=== PATIENT | female | born 1965 | race Caucasian/White ===

== ENCOUNTER 2020-03-30 16:11 | Outpatient (CLI) | payer OTHER, SELFPAY ==
--- NOTE | 2020-03-30 | ECG_ITS ---
Measurements Intervals [place] Rate: 62 P: 34 UT: 171 QRS: 16 QRSD: 113 T: 30 QT: 401 QTc: 407 Interpretive Statements SINUS RHYTHM INTRAVENTRICULAR CONDUCTION DELAY BORDERLINE ECG Electronically Signed On 03-30-2020 18:27:17 LEGUILLON DEBEADER by Catrachito Babin D.O.
[2020-03-30 17:13] LABS: Anion Gap 15 mmol/L (8-16); Blood Urea Nitrogen 22 mg/dL (7-17); Carbon Dioxide 27 mmol/L (22-30); Chloride 97 mmol/L (98-107); Estimated Glomerular Filt Rate 46; Glucose 121 mg/dL (65-105); Sodium 139 mmol/L (137-145)
== END 2020-03-30 16:12 | disposition home or self-care (01) ==
LOC: ANHLAB 16:15
PROVIDERS: Visit Provider Orthopaedic Surgery
DX: Z01.818 Encounter for other preprocedural examination (principal); I45.9 Conduction disorder, unspecified
CPT/HCPCS: 36415; 80048; 93005

== ENCOUNTER 2021-04-06 07:39 | Outpatient (CLI) | payer OTHER, SELFPAY ==
--- NOTE | 2021-04-14 14:52 | WPDHOMESLEEP ---
Sleep Study - Home Unattended Date of Study: 04/06/21 Ordering Provider: Marya Lau DO Interpreting Provider: Chandrika Bentley MD Home Sleep Study Type: Apnea Link Air Height: 1.75 m Weight: 129.274 kg Body Mass Index: 42.0 Neck Circumference (inches): 17 [place]: 10 Reason for Sleep Study Fatigue, waking up during the night, excessive daytime sleepiness Sleep History Marya Howell is a 56 year old female with complaints of feeling tired every day at least for the last year. She had a recent diagnosis of hypothyroidism and has started medication however that has not helped her symptoms. She wakes to go to the bathroom between 2 and 6 times per night. She has a difficult time waking in the morning and she is sleepy throughout the day. She occasionally awakens from sleep feeling short of breath. She does not awaken at night with heartburn belching or coughing. She constantly snores loudly and she constantly has trouble sleeping with a cold. She does not wake up gasping for breath at night. She does not have breathing problems at night observed by others. She denies sweating excessively at night or noticing her heart pounding or beating irregularly at night. She does not fall asleep during the day, does not fall asleep involuntarily or while driving. She does not have loss of muscle tone with strong emotion. She occasionally has daytime difficulties due to excessive sleepiness. 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 She does not feel paralyzed on waking or falling asleep. She constantly has vivid dreamlike scenes upon awakening or falling asleep. She does not feel afraid to go to sleep. She does not have nightmares. She occasionally remembers her dreams. She constantly has racing thoughts. She occasionally feels sad or depressed. She occasionally has anxiety. She occasionally feels muscular tension, occasionally notices parts of her body jerking and she occasionally kicks at night. She occasionally has crawling and aching feelings in her legs. She rarely has any kind of leg pain at night and rarely has morning jaw pain. She does not grind her teeth during sleep, she is not bothered by pain during the day and she is not awakened by pain during the night. She constantly wakes up feeling stiff in the morning. She does not wake up with sore achy muscles. She rarely wakes up with pain in the neck and spine. She has headaches, palpitations, fatigue depression and memory problems. Normal bedtime is 11:00 p.m. taking 1-2 hours to fall asleep, typically waking 2-6 times at night to urinate. While awake, she may get a bite to eat and drink some milk. SHe is able to return to sleep in 5 minutes. She wakes the morning at 5:45 a.m.. On days off, she will often sleep until noon. She feels as though she could take a nap in the day however she does not do so. A short nap is not refreshing. She is usually drowsy in the morning for 3 hours or longer. She feels better in the afternoon compared to other times of day. she always has problems with memory concentration. She occasionally has morning headaches. Habits: Never smoked tobacco. Caffeine 3-4 servings a day. No alcohol or recreational drugs. [facility] Past Medical History Medical History (Updated 04/14/21 @ 15:01 by Chandrika Bentley MD) Arthritis Bipolar disorder Cataract Chicken pox Depression GERD (gastroesophageal reflux disease) History of one miscarriage HTN (hypertension) Kidney disease CKD stage III Pneumonia Thyroid disorder Surgical History Surgical History History of bilateral tubal ligation Hx of section LAP-BAND surgery status Family History Family History Mother Patient's mother is in good health Sibling Patient's sister is in good health Patient's brother is in good health Father CHF (congestive heart failure) Roberto
[2021-04-14 15:11] VITALS: BMI 42.0
== END 2021-04-07 11:13 | disposition home or self-care (01) ==
LOC: ANHCSM 07:39
PROVIDERS: PCP Family Medicine; Visit Provider Family Medicine
DX: G47.10 Hypersomnia, unspecified (principal); R06.83 Snoring
CPT/HCPCS: 95806

== ENCOUNTER → 2021-04-28 01:18 | Outpatient (CLI) | payer OTHER, SELFPAY ==
[2021-04-28 13:16] LABS: SARS-CoV-2 RNA PCR Negative
== END ==
PROVIDERS: PCP Family Medicine; Visit Provider Family Medicine
DX: Z20.822 Contact with and (suspected) exposure to COVID-19 (principal)
CPT/HCPCS: C9803; U0003; U0005

== ENCOUNTER 2021-04-30 08:10 | Outpatient (CLI) | payer OTHER, SELFPAY ==
--- NOTE | 2021-05-16 22:10 | WPDSLEEPSTUD ---
Sleep Study Date of Study: 04/30/21 <Marya Lau DO - Last Filed: 05/17/21 16:55> Ordering Provider: Marya Lau DO <Marya Lau DO - Last Filed: 05/17/21 16:55> Interpreting Physician: Marya Lau DO <Marya Lau DO - Last Filed: 05/17/21 16:55> Sleep Study Type: Split Polysomnogram <Marya Lau DO - Last Filed: 05/17/21 16:55> Height: 1.75 m <Marya Lau DO - Last Filed: 05/17/21 16:55> Weight: 90.718 kg <Marya Lau DO - Last Filed: 05/17/21 16:55> Body Mass Index: 29.5 <Marya Lau DO - Last Filed: 05/17/21 16:55> Neck Circumference (inches): 17 <Marya Lau DO - Last Filed: 05/17/21 16:55> [place]: 10 <Marya Lau - Last Filed: 05/17/21 16:55> Reason for Sleep Study The patient had an HSAT on 04/06/2021 that showed an AHI of 3.7. She desaturated down to 83% with frequent snoring. It was recommended she have an in-lab study. <Marya Lau DO - Last Filed: 05/17/21 16:55> Sleep History Marya Howell is a 56 year old female with complaints of feeling tired every day at least for the last year. She had a recent diagnosis of hypothyroidism and has started medication however that has not helped her symptoms. She wakes to go to the bathroom between 2 and 6 times per night. She has a difficult time waking in the morning and she is sleepy throughout the day. She occasionally awakens from sleep feeling short of breath. She does not awaken at night with heartburn belching or coughing. She constantly snores loudly and she constantly has trouble sleeping with a cold. She does not wake up gasping for breath at night. She does not have breathing problems at night observed by others. She denies sweating excessively at night or noticing her heart pounding or beating irregularly at night. She does not fall asleep during the day, does not fall asleep involuntarily or while driving. She does not have loss of muscle tone with strong emotion. She occasionally has daytime difficulties due to excessive sleepiness. 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 She does not feel paralyzed on waking or falling asleep. She constantly has vivid dreamlike scenes upon awakening or falling asleep. She does not feel afraid to go to sleep. She does not have nightmares. She occasionally remembers her dreams. She constantly has racing thoughts. She occasionally feels sad or depressed. She occasionally has anxiety. She occasionally feels muscular tension, occasionally notices parts of her body jerking and she occasionally kicks at night. She occasionally has crawling and aching feelings in her legs. She rarely has any kind of leg pain at night and rarely has morning jaw pain. She does not grind her teeth during sleep, she is not bothered by pain during the day and she is not awakened by pain during the night. She constantly wakes up feeling stiff in the morning. She does not wake up with sore achy muscles. She rarely wakes up with pain in the neck and spine. She has headaches, palpitations, fatigue depression and memory problems. Normal bedtime is 11:00 p.m. taking 1-2 hours to fall asleep, typically waking 2-6 times at night to urinate. While awake, she may get a bite to eat and drink some milk. She is able to return to sleep in 5 minutes. She wakes the morning at 5:45 a.m.. On days off, she will often sleep until noon. She feels as though she could take a nap in the day however she does not do so. A short nap is not refreshing. She is usually drowsy in the morning for 3 hours or longer. She feels better in the afternoon compared to other times of day. she always has problems with memory concentration. She occasionally has morning headaches. Habits: Never smoked tobacco. Caffeine 3-4 servings a day. No alcohol or recreational drugs. <Marya Lau, DO - Last Filed: 05/17/21
[2021-05-17 16:55] VITALS: BMI 29.5
== END 2021-05-01 06:56 | disposition home or self-care (01) ==
LOC: ANHCSM 08:14
PROVIDERS: PCP Family Medicine; Visit Provider Family Medicine
DX: G47.10 Hypersomnia, unspecified (principal); G47.33 Obstructive sleep apnea (adult) (pediatric); G25.9 Extrapyramidal and movement disorder, unspecified
CPT/HCPCS: 95811

== ENCOUNTER 2022-04-22 12:46 | Outpatient (CLI) | payer SELFPAY ==
--- NOTE | ~2022-04-22 | US_ITS ---
EXAMINATION: US venous doppler LE RT DATE: 04/22/2022 13:48 INDICATION: Other specified soft tissue disorders TECHNIQUE: Matthews scale images without and with compression and Doppler images of the right lower extre mity veins were obtained. COMPARISON: None FINDINGS: The right common femoral vein, profunda femoral vein, femoral vein, popliteal vein, peronea l trunk, posterior tibial veins, and greater saphenous vein are patent. There is an approximately 10. 1 x 1.3 cm intramuscular fluid collection in the medial calf in the area of clinical concern. IMPRESSION: 1. Patent right lower extremity veins. No evidence of deep venous thrombosis. 2. Intramuscular fluid collection in the medial right calf in the area of clinical concern which coul d reflect prior trauma or less likely infection. Reviewed, dictated and finalized at location B. L FITTER IMPRESSION: 1. Patent right lower extremity veins. No evidence of deep venous thrombosis. 2. Intramuscular fluid collection in the medial right calf in the area of clini ruben concern which could reflect prior trauma or less likely infection.
== END 2022-04-22 12:47 | disposition home or self-care (01) ==
PROVIDERS: PCP Family Medicine; Visit Provider Clinical Nurse Specialist
DX: M79.89 Other specified soft tissue disorders (principal)
CPT/HCPCS: 93971

== ENCOUNTER 2022-06-10 00:34 | Day surgery (SDC) | payer OTHER, SELFPAY ==
[2022-05-25 11:27] VITALS: BMI 42.0
--- NOTE | 2022-06-09 15:41 | PM.HPGS ---
History of Present Illness History of Present Illness Consent: Risks, benefits, and alternatives have been discussed and questions answered. Patient agrees to proceed with procedure. Chief complaint: family hx colon ca, neoplasm screening Narrative: Marya Howell is a 57 year old female Who was referred for colon cancer screening. She has family history of colon cancer, her maternal grandfather. Review of Systems Review of Systems: All systems reviewed & are unremarkable except as noted in HPI and below PMFSH Past Medical History Medical History Arthritis Bipolar disorder Cataract Chicken pox Depression GERD (gastroesophageal reflux disease) History of one miscarriage History of torn meniscus of left knee surgical repair 04/08/2021 HTN (hypertension) Kidney disease CKD stage III Pneumonia Thyroid disorder Surgical History Surgical History History of bilateral tubal ligation Hx of section LAP-BAND surgery status Family History Family History Mother Patient's mother is in good health Sibling Patient's sister is in good health Patient's brother is in good health Father CHF (congestive heart failure) Alcoholism Hypertension Depression Heart disease Grandparent Cancer Diabetes mellitus Social History Social History Smoking status: Never smoker Alcohol intake: never Substance use: never Substance use type: does not use Lack of Transportation: No Lack of Food: Never True Current Housing: I Have Housing Concerned About Future Housing: No Difficulty Paying Gas/Electric Bills: No Difficulty Paying for Meds: No Currently Unemployed: No Education: Bachelor's Degree Difficulty w/ Childcare or Family Care: No Living arrangements: with family Spiritual care concerns: No Meds Home Medications and Allergies Home Medications Medication Instructions Recorded Confirmed Type lamotrigine 200 mg tablet 200 mg PO DAILY 04/01/19 05/25/22 History lithium carbonate 300 mg capsule 300 mg PO DAILY 04/01/19 05/25/22 History lurasidone 60 mg tablet (Latuda) 60 mg PO DAILY 04/01/19 05/25/22 History hydrochlorothiazide 12.5 mg tablet 12.5 mg PO DAILY 02/18/21 05/25/22 History levothyroxine 13 mcg capsule 13 mcg PO DAILY 02/18/21 05/25/22 History metoprolol succinate 25 mg 25 mg PO DAILY #90 tabs 03/14/22 05/25/22 Rx tablet,extended release 24 hr quetiapine 100 mg tablet 50 mg PO QHS 04/22/22 05/25/22 History amlodipine 2.5 mg tablet See Rx Instructions .Route 05/11/22 05/25/22 Rx .COMPLEX #90 tabs CPAP Equipment #1 ea 06/08/22 Rx Allergies Allergy/AdvReac Type Severity Reaction Status Date / Time No Known Allergies Allergy Verified 06/10/22 07:29 Exam Const: General: alert Orientation/consciousness: patient oriented x3 Resp: Auscultation: clear to auscultation bilaterally Cardio: Rhythm: regular rhythm GI: GI Palp: Yes Soft to palpation and No Tenderness to palpation present (GI) Neuro: General: patient oriented x3 Assessment and Plan Assessment and plan (1) Colon cancer screening: Code(s): Z12.11 - Encounter for screening for malignant neoplasm of colon Status: Acute Assessment and Plan: Colonoscopy with possible biopsy or polypectomy or cautery or injection of substances.
[2022-06-10 07:30] VITALS: BP 149/73; PULSE 58; RESP 18; TEMP 36.1; O2SAT 98
[2022-06-10] MEDS: LACTATED RINGERS 1,000 ML 150 ML IV CONT (07:37)
--- NOTE | 2022-06-10 08:04 | WPDANESEPPF ---
Anes - Initial Pre Proc Eval Procedure: Operation Date: 06/10/22 08:30 Proposed Procedures p Screening Colonoscopy - Devonte Pitt MD Date/Time: 06/10/22 08:04 Surgeon: Devonte Pitt MD Pre Op Diagnosis: family hx colon ca, neoplasm screening Patient Data Age: 57 Gender: F Height: 1.78 m Weight: 126.1 kg Last Vital Signs Temp 97 F L 06/10/22 07:30 Pulse 58 L 06/10/22 07:30 Resp 18 06/10/22 07:30 BP 149/73 H 06/10/22 07:30 Pulse Ox 98 06/10/22 07:30 O2 Del Method Room Air 06/10/22 07:30 Allergies Allergy/AdvReac Type Severity Reaction Status Date / Time No Known Allergies Allergy Verified 06/10/22 07:29 Home Medications Medication Instructions Recorded Confirmed Type lamotrigine 200 mg tablet 200 mg PO DAILY 04/01/19 05/25/22 History lithium carbonate 300 mg capsule 300 mg PO DAILY 04/01/19 05/25/22 History lurasidone 60 mg tablet (Latuda) 60 mg PO DAILY 04/01/19 05/25/22 History hydrochlorothiazide 12.5 mg tablet 12.5 mg PO DAILY 02/18/21 05/25/22 History levothyroxine 13 mcg capsule 13 mcg PO DAILY 02/18/21 05/25/22 History metoprolol succinate 25 mg 25 mg PO DAILY #90 tabs 03/14/22 05/25/22 Rx tablet,extended release 24 hr quetiapine 100 mg tablet 50 mg PO QHS 04/22/22 05/25/22 History amlodipine 2.5 mg tablet See Rx Instructions .Route 05/11/22 05/25/22 Rx .COMPLEX #90 tabs CPAP Equipment #1 ea 06/08/22 Rx Patient hx anesthesia problems: none Family hx anesthesia problems: none Results Review: All pre-operative results and documents have been reviewed as part of the pre-operative evaluation. [facility] [place] Past Medical History Medical History Arthritis Bipolar disorder Cataract Chicken pox Depression GERD (gastroesophageal reflux disease) History of one miscarriage History of torn meniscus of left knee surgical repair 04/08/2021 HTN (hypertension) Kidney disease CKD stage III Pneumonia Thyroid disorder Surgical History Surgical History History of bilateral tubal ligation Hx of section LAP-BAND surgery status Family History Family History Mother Patient's mother is in good health Sibling Patient's sister is in good health Patient's brother is in good health Father CHF (congestive heart failure) Alcoholism Hypertension Depression Heart disease Grandparent Cancer Diabetes mellitus Social History Social History Smoking status: Never smoker Alcohol intake: never Substance use: never Substance use type: does not use Lack of Transportation: No Lack of Food: Never True Current Housing: I Have Housing Concerned About Future Housing: No Difficulty Paying Gas/Electric Bills: No Difficulty Paying for Meds: No Currently Unemployed: No Education: Bachelor's Degree Difficulty w/ Childcare or Family Care: No Living arrangements: with family Spiritual care concerns: No Anes - Eval Final PreProcedure Day of Procedure 06/10/22 08:04 Patient weight: morbidly obese Heart: regular rate and rhythm Lungs: clear to auscultation Airway: Mallampati scale class III Neurological: alert and oriented Last oral intake: >/= 8 hours ASA classification: III Emergent: no Anesthetic plan: proceed Anesthesia type and monitoring: general GIVS and standard monitoring Results Review: All pre-operative results and documents have been reviewed as part of the pre-operative evaluation. Informed Consent: The patient's anesthetic plan and its attendant risks and benefits were discussed with the patient/family/POA. Questions were solicited and answers provided to the satisfaction of the patient/family/POA.
[2022-06-10 08:51] VITALS: BP 123/72; PULSE 66; RESP 22; O2SAT 99
[2022-06-10 09:01] VITALS: BP 144/67; PULSE 59; RESP 20; O2SAT 100
[2022-06-10 09:11] VITALS: BP 162/58; PULSE 60; RESP 20; O2SAT 100
== END 2022-06-10 09:23 | disposition home or self-care (01) ==
PROVIDERS: PCP Family Medicine; Visit Provider Internal Medicine Gastroenterology
PROC: 0DJD8ZZ Inspection of Lower Intestinal Tract, Via Natural or Artificial Opening Endoscopic (ICD-10-PCS; CPT 45378; principal; 2022-06-10 08:30)
DX: Z12.11 Encounter for screening for malignant neoplasm of colon (principal); Z80.0 Family history of malignant neoplasm of digestive organs; I12.9 Hypertensive chronic kidney disease with stage 1 through stage 4 chronic kidney disease, or unspecified chronic kidney disease; N18.30 Chronic kidney disease, stage 3 unspecified; F31.9 Bipolar disorder, unspecified; K21.9 Gastro-esophageal reflux disease without esophagitis; E07.9 Disorder of thyroid, unspecified; Z98.84 Bariatric surgery status; E66.01 Morbid (severe) obesity due to excess calories; Z68.39 Body mass index [BMI] 39.0-39.9, adult
CPT/HCPCS: 45378; J2704; J7120

== ENCOUNTER 2023-04-29 10:44 | Outpatient (CLI) | payer OTHER, SELFPAY ==
--- NOTE | ~2023-04-29 | US_ITS ---
US abdomen complete DATE: 04/29/2023 11:24 INDICATION: Right lower quadrant abdominal pain TECHNIQUE: Real-time imaging and Doppler analysis of the abdomen COMPARISON: 12/26/2010 CT abdomen pelvis FINDINGS: Scanning in the right lower quadrant reveals no apparent abnormality. CT examination would be more sensitive for detection of appendicitis. No hepatic or pancreatic space-occupying mass lesion is evident. Normal hepatopedal portal venous fl ow direction. There are numerous gallbladder filling defects with shadowing consistent with cholelithiasis. No gall bladder wall thickening or pericholecystic fluid collection is evident. There is an approximately 3.5 cm cyst of the left kidney. No renal mass lesion or hydronephrosis is n oted otherwise. Normal splenic size. Normal caliber of the abdominal aorta. Inferior vena cava is unremarkable. IMPRESSION: Cholelithiasis Left renal cyst Reviewed, dictated and finalized at Location [facility]. Reviewed, dictated and finalized at location A. 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
== END 2023-04-29 10:45 ==
LOC: MICIMG 10:46
PROVIDERS: PCP Nurse Practitioner; Visit Provider Nurse Practitioner
DX: K80.20 Calculus of gallbladder without cholecystitis without obstruction (principal)
CPT/HCPCS: 76700

== ENCOUNTER → 2023-05-30 16:32 | Outpatient (CLI) | payer OTHER, SELFPAY ==
--- NOTE | ~2023-05-30 | XR_ITS ---
EXAMINATION: XR abdomen/kub 1V DATE: 05/30/2023 17:09 INDICATION: Right lower quadrant abdominal pain. Left lower quadrant abdominal pain. Constipation. Bl oating. TECHNIQUE: A supine view of the abdomen on 3 radiographs was obtained. COMPARISON: CT abdomen and pelvis 12/26/2010 FINDINGS: There are no dilated loops of bowel. There is a moderate volume of stool in the colon. Ther e is a lap band around the proximal stomach with normal phi angle. Calcifications in the pelvis are l ikely phleboliths. IMPRESSION: 1. Nonobstructive bowel gas pattern. Reviewed, dictated and finalized at location E. SOLE SEWER
== END ==
PROVIDERS: PCP Nurse Practitioner; Visit Provider Nurse Practitioner
DX: R10.31 Right lower quadrant pain (principal)
CPT/HCPCS: 74018

== ENCOUNTER 2023-06-13 19:21 | Emergency (ER) | payer OTHER, SELFPAY ==
[2023-06-13 19:30] VITALS: BP 148/99; PULSE 95; RESP 15; TEMP 36.4; O2SAT 99
[2023-06-13 19:54] LABS: Bacteria Urine None Seen /hpf; RBC Urine >100 /hpf (0-2); Squamous Epithelial Cell Urine None seen /hpf (Few); WBC Urine 21-50 /hpf
[2023-06-13 20:23] LABS: Appearance Urine Turbid (Clear); Blood Urine 3+ (Negative); Color Urine Red (Yellow); Glucose Urine UA Negative (Negative); Ketones Urine Negative (Negative); Nitrate Urine Negative (Negative); Protein Urine 2+ mg/dL (Negative); Specific Grav Ur 1.019 (1.001-1.035)
[2023-06-13 20:25] LABS: Urobilinogen Urine 0.2 mg/dL (<2.0)
[2023-06-13 20:26] LABS: Bilirubin Urine Negative (Negative); Leukocyte Esterase Ur Negative LEU/UL (Negative)
[2023-06-13 20:30] LABS: Add Urine Microscopic? YES
[2023-06-13 22:55] VITALS: BP 124/80; PULSE 80; RESP 18; O2SAT 98
[2023-06-13 23:02] VITALS: BP 125/76; PULSE 76; RESP 28; O2SAT 99
[2023-06-13 23:17] VITALS: BP 125/76; PULSE 75; RESP 26; O2SAT 98
[2023-06-14 00:32] VITALS: BP 132/83; PULSE 75; RESP 24; O2SAT 100
--- NOTE | 2023-06-14 00:47 | ED.FEMALEGU ---
HPI - Female Genitourinary General Chief complaint: Urogenital-Female Stated complaint: catheter full of blood Time Seen by Provider: 06/13/23 23:47 History of Present Illness HPI Narrative: 58-year-old female with history of hypertension and bipolar disorder presents to emergency department for blood in her Goodrich catheter. Patient was evaluated 8 days ago at [facility] Emergency Department for abdominal pain and urinary retention. She had a CT scan done at that time which with a thickened endometrium and had a ultrasound which confirmed this diagnosis. It was presumed that the thickened endometrium was pushing on the ureter and causing urinary retention, therefore a Goodrich catheter was placed with improvement. The patient was discharged home with OBGYN follow-up. She reported back to [facility] Emergency Department 2 days later for blood in her Goodrich catheter. The Goodrich catheter was changed and the patient was started on Keflex for a UTI. She reports to emergency department today for blood in her catheter. She states she has some discomfort surrounding her catheter but denies dysuria, history of kidney stones. She reports lower abdominal pain which has been persistent since the onset of her symptoms unchanged from her baseline. She denies fever, vomiting, nausea, diarrhea. She was evaluated by her OBGYN today, Dr. Vera, who prescribed her Alexander for her abdominal pain. Patient has yet to picker and packer her prescription. She is scheduled for a hysteroscopy and D&C for tissue sampling on 06/14. 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 Patient presents with her discharge paperwork from [facility] ER visits which have been reviewed. Patient is currently on Eliquis for AFib prescribed by her long term care pharmacist. Related Data Home Medications Medication Instructions Recorded Confirmed lamotrigine 200 mg tablet 200 mg PO DAILY 04/01/19 06/13/23 lithium carbonate 300 mg capsule 300 mg PO DAILY 04/01/19 06/13/23 lurasidone 60 mg tablet (Latuda) 60 mg PO DAILY 04/01/19 06/13/23 quetiapine 100 mg tablet 50 mg PO QHS 04/22/22 06/13/23 hydrochlorothiazide 12.5 mg tablet 25 mg PO DAILY 06/22/22 06/13/23 amiloride 5 mg tablet 5 mg PO DAILY 08/24/22 06/13/23 metoprolol succinate 25 mg 12.5 mg PO BID 08/24/22 06/13/23 tablet,extended release 24 hr liothyronine 5 mcg tablet 5 mcg PO DAILY 10/19/22 06/13/23 losartan 50 mg tablet 50 mg PO DAILY 01/25/23 06/13/23 olanzapine 10 mg tablet 5 mg PO DAILY 04/28/23 06/13/23 apixaban 5 mg tablet (Eliquis) 10 mg PO BID 05/25/23 06/13/23 Allergies Allergy/AdvReac Type Severity Reaction Status Date / Time No Known Allergies Allergy Verified 06/13/23 12:59 Review of Systems Review of Systems: CONSTITUTIONAL: Denies fever, chills, or sweats. EYES: Denies visual changes, redness, or discharge. ENT: Denies rhinorrhea, congestion, sore throat, or otalgia. CARDIOVASCULAR: Denies chest pain, palpitations, or edema. RESPIRATORY: Denies cough or dyspnea. GASTROINTESTINAL: See HPI GENITOURINARY: See HPI SKIN: Denies rash or itching. MUSCULOSKELETAL: Denies back pain, joint pain, or myalgia. NEUROLOGIC: Denies headache, numbness, or weakness. PSYCHIATRIC: Denies anxiety or depression. [facility] Past Medical History Medical History Arthritis Bipolar disorder Bloating Cataract Change in bowel habits Chicken pox Constipation Depression Gallstones GERD (gastroesophageal reflux disease) History of one miscarriage History of torn meniscus of left knee surgical repair 04/08/2021 HTN (hypertension) Kidney disease CKD stage III Pneumonia Skin tag of vaginal mucosa Thyroid disorder Vaginitis Surgical History Surgical History History of bilateral tubal ligation History of left knee surgery Hx of section LAP-BAND surgery status Family
[2023-06-14 00:49] VITALS: BP 114/78; PULSE 76; RESP 34; O2SAT 99
[2023-06-14 01:02] VITALS: BP 110/69; PULSE 77; RESP 32; O2SAT 98
[2023-06-14 01:17] VITALS: BP 125/85; PULSE 77; RESP 30; O2SAT 100
[2023-06-14 01:32] VITALS: BP 111/71; PULSE 77; RESP 30; O2SAT 100
--- NOTE | 2023-06-14 01:41 | PC.NURSE ---
CBI started. output pink
[2023-06-14] MEDS: HYDROcodone/acetaminophen (*CRX) 5-325 MG TABLET 1 TAB PO (01:42)
[2023-06-14 02:02] LABS: Basophils Absolute Auto 0.1 K/mm3 (0.0-0.1); Basophils Percent Auto 0.6 % (0.2-1.2); Eosinophils Percent Auto 0.3 % (0-4.4); Hematocrit 47.9 % (37.0-47.0); Hemoglobin 15.2 g/dL (12.0-15.0); Immature Granulocyte Absolute 0.09 K/mm3 (0.00-0.031); Immature Granulocyte Percent A 0.6 % (0-0.5); Lymphocytes Absolute Auto 1.49 K/mm3 (0.9-3.2); Lymphocytes Percent Auto 10.6 % (18.3-44.2); Mean Corpuscular HGB Conc 31.7 g/dl (32-36); Mean Corpuscular Hemoglobin 28.6 pg (26-34); Mean Corpuscular Volume 90.2 fl (80-100); Mean Platelet Volume 9.2 fl (7.4-10.4); Monocytes Absolute Auto 1.1 K/mm3 (0.1-0.6); Monocytes Percent Auto 7.8 % (2.6-8.5); Neutrophils Absolute Auto 11.2 K/mm3 (1.3-6.7); Neutrophils Percent Auto 80.1 % (45.5-73.1); Platelet Count Result 434 k/mm3 (150-375); Red Blood Count 5.31 M/mm3 (4.2-5.4); Red Cell Distribution Width 13.3 % (11.5-14.5)
[2023-06-14] MEDS: WATER FOR IRRIGATION, STERILE 500 ML BOTTLE (02:05)
[2023-06-14 02:54] LABS: Alanine Aminotransferase 21 U/L (6-35); Albumin Level 4.1 g/dL (3.5-5.1); Alkaline Phosphatase 96 U/L (38-126); Anion Gap 11 mmol/L (8-16); Aspartate Amino Transferase 24 U/L (14-36); Bilirubin,Total 0.5 mg/dL (0.2-1.3); Blood Urea Nitrogen 26 mg/dL (7-17); Calcium 10.3 mg/dL (8.4-10.2); Carbon Dioxide 23 mmol/L (22-30); Chloride 101 mmol/L (98-107); Estimated CRCL calculation 57 ml/min; Estimated Glomerular Filt Rate 38; Glucose 128 mg/dL (65-110); Lipase 83 U/L (23-300); Potassium 4.2 mmol/L (3.4-5.0); Sodium 135 mmol/L (137-145)
[2023-06-14 03:00] VITALS: BP 130/82; PULSE 79; RESP 25; O2SAT 99
--- NOTE | 2023-06-14 03:15 | PC.NURSE ---
Pt's catheter draining clear. Ok per Tracy to dc CBI.
[2023-06-14] MEDS: CEFDINIR 300 MG CAPSULE PO (04:36)
== END 2023-06-14 04:48 | disposition home or self-care (01) ==
PROVIDERS: Emergency Medicine; Emergency Provider Physician Assistant; PCP Family Medicine
DX: T83.511A Infection and inflammatory reaction due to indwelling urethral catheter, initial encounter (principal); R31.0 Gross hematuria; I48.91 Unspecified atrial fibrillation; I12.9 Hypertensive chronic kidney disease with stage 1 through stage 4 chronic kidney disease, or unspecified chronic kidney disease; N18.30 Chronic kidney disease, stage 3 unspecified; K21.9 Gastro-esophageal reflux disease without esophagitis; M19.90 Unspecified osteoarthritis, unspecified site; E07.9 Disorder of thyroid, unspecified; F31.9 Bipolar disorder, unspecified; Z98.84 Bariatric surgery status; Z87.01 Personal history of pneumonia (recurrent); Z79.01 Long term (current) use of anticoagulants
CPT/HCPCS: 36415; 51700; 80053; 81001; 83690; 85025; 87077; 87086; 87088; 87186; 99283; A9270

== ENCOUNTER 2023-06-15 00:57 | Day surgery (SDC) | payer OTHER, SELFPAY ==
[2023-06-13 13:01] VITALS: BMI 44.3
--- NOTE | 2023-06-13 13:05 | PC.NURSE ---
Report to the Outpatient Waiting Room, entrance under the green pavilion located off [facility], at time 10:00 on date 06/15/23. Planned Procedure Time: 12:00. Time changes happen often and if your time is changed the preop area will call you the afternoon before. - You and your visitor will be asked to self-screen and do not enter if you have any COVID symptoms. - A mask is optional within the hospital at this time. Patients may have clear liquids (water, carbonated beverages, clear teas, apple juice) until 3 hours prior to surgery (9:00) with a maximum of 20 ounces. - No food from midnight until time of surgery Take the following medications with a SIP of water the morning of surgery: AMILORIDE, LAMOTRIGINE, LIOTHYRONINE, LITHIUM, LURASIDONE, METOPROLOL, OLANZAPINE DO NOT STOP ANY OF YOUR OTHER PRESCRIPTION MEDICATIONS PRIOR TO SURGERY ?EXCEPT THE FOLLOWING Medications to discontinue per physician: ELIQUIS Date to take last dose: PER DR. ZIMMERMAN Please no make-up, nail persian, hairspray, perfume, deodorant, or body powder the day of surgery. No jewelry (including any body piercings) or valuables the day of surgery, leave them at home. Please take a shower or bath the night before, or the morning of, surgery with an antibacterial soap. Wear comfortable, loose fitting clothing. - Jewelry must be removed prior to entering the operating room. Rings and piercings that are not removed may be cut off. - The hospital will not accept responsibility for valuables. - Please leave all valuables, including medications, at home the day of surgery. If you are going home after surgery, a licensed team otr truck driver must drive you home. - NO public transportation without another adult if you receive anesthesia. - We recommend that an adult stay with you for 24 hours following discharge. - We also recommend that you do not drive, make important decision, drink alcoholic beverages, or take any drugs that were not prescribed by your health care provider for at least 24 hours after your discharge time. Follow any additional instructions given to you from your surgeon. If you or anyone in your household have experienced Covid symptoms in the past week, please notify your surgeon or the nurse liaison at the phone number below for possible testing. Telephone instructions given to PT - PRESTON LOPEZ and asked if any additional questions and then verbalized understanding. Patient advised to call surgeon office or pre surgery nurse liaison [phone] if any additional questions.
--- NOTE | 2023-06-14 12:59 | WPDANESEPPF ---
Anes - Initial Pre Proc Eval Procedure: Operation Date: 06/15/23 12:00 Proposed Procedures p Hysteroscopy, Dilation and Curettage - Lenny Vera MD Date/Time: 06/14/23 12:59 Surgeon: Lenny Vera MD Pre Op Diagnosis: uterine mass Patient Data Age: 58 Gender: F Height: 1.75 m Weight: 136.1 kg Allergies Allergy/AdvReac Type Severity Reaction Status Date / Time No Known Allergies Allergy Verified 06/15/23 11:09 Home Medications Medication Instructions Recorded Confirmed Type lamotrigine 200 mg tablet 200 mg PO DAILY 04/01/19 06/13/23 History lithium carbonate 300 mg capsule 300 mg PO DAILY 04/01/19 06/13/23 History lurasidone 60 mg tablet (Latuda) 60 mg PO DAILY 04/01/19 06/13/23 History quetiapine 100 mg tablet 50 mg PO QHS 04/22/22 06/13/23 History CPAP Equipment #1 ea 06/08/22 06/13/23 Rx hydrochlorothiazide 12.5 mg tablet 25 mg PO DAILY 06/22/22 06/13/23 History amiloride 5 mg tablet 5 mg PO DAILY 08/24/22 06/13/23 History metoprolol succinate 25 mg 12.5 mg PO BID 08/24/22 06/13/23 History tablet,extended release 24 hr liothyronine 5 mcg tablet 5 mcg PO DAILY 10/19/22 06/13/23 History losartan 50 mg tablet 50 mg PO DAILY 01/25/23 06/13/23 History olanzapine 10 mg tablet 5 mg PO DAILY 04/28/23 06/13/23 History apixaban 5 mg tablet (Eliquis) 10 mg PO BID 05/25/23 06/13/23 History hydrocodone 5 mg-acetaminophen 325 1 tablet PO Q6H PRN pain #14 tabs 06/13/23 06/13/23 Rx mg tablet cefdinir 300 mg capsule 300 mg PO Q12H #14 caps 06/14/23 Rx Patient hx anesthesia problems: none Family hx anesthesia problems: none Results Review: All pre-operative results and documents have been reviewed as part of the pre-operative evaluation. [facility] Past Medical History Medical History Arthritis Bipolar disorder Bloating Cataract Change in bowel habits Chicken pox Constipation Depression Gallstones GERD (gastroesophageal reflux disease) History of one miscarriage History of torn meniscus of left knee surgical repair 04/08/2021 HTN (hypertension) Kidney disease CKD stage III Pneumonia Skin tag of vaginal mucosa Thyroid disorder Vaginitis Surgical History Surgical History History of bilateral tubal ligation History of left knee surgery Hx of section LAP-BAND surgery status Family History Family History Mother Patient's mother is in good health Sibling Patient's sister is in good health Patient's brother is in good health Father CHF (congestive heart failure) Alcoholism Hypertension Depression Heart disease Grandparent Cancer Diabetes mellitus Social History Social History Smoking status: Never smoker Alcohol intake: never Substance use: never Substance use type: does not use Do You Feel Safe in your Home?: Yes Lack of Transportation: No Lack of Food: Never True Current Housing: I Have Housing Concerned About Future Housing: No Difficulty Paying Gas/Electric Bills: No Difficulty Paying for Meds: No Currently Unemployed: No Education: Bachelor's Degree Difficulty w/ Childcare or Family Care: No Living arrangements: with family Spiritual care concerns: No Anes - Eval Final PreProcedure Day of Procedure 06/14/23 12:59 Patient weight: morbidly obese Heart: regular rate and rhythm Lungs: clear to auscultation Airway: Mallampati scale class III Neurological: alert and oriented Last oral intake: >/= 8 hours ASA classification: III Emergent: no Anesthetic plan: proceed Anesthesia type and monitoring: general GIVS and standard monitoring Results Review: All pre-operative results and documents have been reviewed as part of the pre-operative evaluation. Informed Consent: The patient's anes
--- NOTE | 2023-06-15 08:27 | PM.IMHP ---
H&P: HPI History of Present Illness Date/Time: 06/15/23 08:27 Chief Complaint: pelvic rosa uterine mass Narrative: 58 yo female who presents for hysteroscopy D&C for pelvic pain and uterine mass. Patient recently went to the emergency room on 06/07 for pelvic pain.? Patient states she has been dealing with this pain for the past several weeks.? Patient states her primary care physician suspected gallstones.? Patient had ultrasound which showed small gallstones.? General surgery was consulted which did not X bladder.? Patient then tried GI cleanses as she has been constipated and suspected GI etiology. patient has not had a bowel movement 10 days.? Patient states she then was unable to urinate.? Patient had a Goodrich catheter placed in the emergency room.? Pelvic ultrasound in the emergency room showed an enlarged uterus, thickened endometrium, and a intrauterine cystic mass.? Patient is still uncomfortable and intense pain.? Patient states her last Pap smear was 4 years ago.? Patient reports a history of benign Pap smears. Review of Systems Cardiovascular: Cardiovascular: Denies chest pain, Denies leg edema, Denies palpitations, Denies dyspnea and Denies dyspnea on exertion Respiratory: Respiratory: Denies cough, Denies dyspnea and Denies dyspnea on exertion Gastrointestinal: Gastrointestinal: Denies diarrhea, Denies nausea and Denies vomiting Neurologic: Reports system reviewed and no additional complaints, except as documented Psychiatric: Psychiatric: Reports no additional psychiatric complaints Endocrine: Endocrine: Denies palpitations [facility] Past Medical History Medical History Arthritis Bipolar disorder Bloating Cataract Change in bowel habits Chicken pox Constipation Depression Gallstones GERD (gastroesophageal reflux disease) History of one miscarriage History of torn meniscus of left knee surgical repair 04/08/2021 HTN (hypertension) Kidney disease CKD stage III Pneumonia Skin tag of vaginal mucosa Thyroid disorder Vaginitis Surgical History Surgical History History of bilateral tubal ligation History of left knee surgery Hx of section LAP-BAND surgery status Family History Family History Mother Patient's mother is in good health Sibling Patient's sister is in good health Patient's brother is in good health Father CHF (congestive heart failure) Alcoholism Hypertension Depression Heart disease Grandparent Cancer Diabetes mellitus Social History Social History Smoking status: Never smoker Alcohol intake: never Substance use: never Substance use type: does not use Do You Feel Safe in your Home?: Yes Lack of Transportation: No Lack of Food: Never True Current Housing: I Have Housing Concerned About Future Housing: No Difficulty Paying Gas/Electric Bills: No Difficulty Paying for Meds: No Currently Unemployed: No Education: Bachelor's Degree Difficulty w/ Childcare or Family Care: No Living arrangements: with family Spiritual care concerns: No Meds Home Medications and Allergies Home Medications Medication Instructions Recorded Confirmed Type lamotrigine 200 mg tablet 200 mg PO DAILY 04/01/19 06/13/23 History lithium carbonate 300 mg capsule 300 mg PO DAILY 04/01/19 06/13/23 History lurasidone 60 mg tablet (Latuda) 60 mg PO DAILY 04/01/19 06/13/23 History quetiapine 100 mg tablet 50 mg PO QHS 04/22/22 06/13/23 History CPAP Equipment #1 ea 06/08/22 06/13/23 Rx hydrochlorothiazide 12.5 mg tablet 25 mg PO DAILY 06/22/22 06/13/23 History amiloride 5 mg tablet 5 mg PO DAILY 08/24/22 06/13/23 History metoprolol succinate 25 mg 12.5 mg PO BID 08/24/22 06/13/23 History tablet,extended release 24 hr liothyronine 5 mc
[2023-06-15 10:59] VITALS: BP 110/60; PULSE 82; RESP 14; TEMP 36.2; O2SAT 99
[2023-06-15 11:03] LABS: INR 1.1; Prothrombin Time 15.1 Seconds (11.1-14.7)
[2023-06-15 11:04] LABS: Partial Thromboplastin Time 28.7 SECONDS (22.3-36.8)
--- NOTE | 2023-06-15 11:05 | WPDHPUPDATE1 ---
History and Physical Update Update Date/Time: 06/15/23 11:05 History and Physical has been reviewed, including an updated exam of the patient. There are NO changes in the patient's condition. Risks, benefits, and alternatives have been discussed and questions answered. Patient agrees to proceed with procedure.
[2023-06-15] MEDS: LACTATED RINGERS 1,000 ML 30 ML IV CONT (11:08)
[2023-06-15] MEDS: ACETAMINOPHEN 500 MG TABLET 1000 MG PO (11:15)
[2023-06-15 11:17] LABS: Lithium 0.8 mmol/L (0.6-1.2)
[2023-06-15] MEDS: LIDOCAINE HCL 1% LOCAL INJ 20 ML VIAL 10 ML INFILTRATE (12:16)
--- NOTE | 2023-06-15 12:21 | W.PM.PROC2 ---
Procedure Note - Detailed Date of Procedure 06/15/23 Pre-op Diagnosis uterine mass pelvic pain Post-op Diagnosis Same Procedure Performed hysteroscopy dilation and curettage paracervical block Surgeon Lenny Vera MD Anesthesia General Indications pelvic pain uterine mass Findings exophytic mass extruding from the cervical os, the endometrium was globally thickened and hypervascular. High suspicion of malignancy Description of Procedure Marya Howell presents for the above procedure. She was counseled as to the indications, risks, benefits, and alternatives to surgery, with the risks including bleeding, infection, damage to surrounding organs, VTE, and complications of anesthesia. Her verbal and written consent was obtained. PROCEDURE: The patient was taken to the OR and general anesthesia induced. She was prepped and draped in Canelo stirrups with support of the back and bilateral lower extremities. Pt had catheter in place from outpatient. The above findings were noted. Infiltration with 1% lidocaine at the 3 and 9 o'clock cervical positions was performed. A single tooth tenaculum was placed on the anterior lip of the cervix. The above noted cervical lesion was noted. The cervix was dilated with sequential Pamela dilators. Hysteroscopy, using a normal saline medium, was performed and showed the above findings. Sharp uterine curettage was then performed and tissue placed on Telfa. A large amount of abnormal appearing tissue was extracted. The tenaculum was removed and hemostasis was observed. The patient tolerated the procedure well. Sponge, lap, and needle counts were correct. The patient had SCD's on throughout the case for VTE prophylaxis. The patient was taken to the recovery room in stable condition. Estimated Blood Loss 15 Drains No Packing No Pathology Yes (endometrial curettings ) Complications No immediate complications Condition Stable Disposition PACU [facility] Billing Surgery - Charge Forward: Surgery Billing
[2023-06-15 12:27] VITALS: BP 134/83; PULSE 73; RESP 16; O2SAT 95
[2023-06-15] MEDS: fentaNYL CITRATE INJ (*CRX) 100 MCG/2 ML VIAL 25 MCG IV PUSH ×2 (12:46→12:49)
[2023-06-15 12:55] VITALS: BP 152/82; PULSE 74; O2SAT 97
[2023-06-15 13:25] VITALS: BP 168/86; PULSE 81
[2023-06-15] MEDS: oxyCODONE HCL (*CRX) 5 MG TAB IR PO (13:31)
[2023-06-15 13:55] VITALS: BP 142/76; PULSE 75
--- NOTE | 2023-06-15 14:04 | SUR.PHASEII ---
Patient vitals are stable. She is unhooked from the monitors waiting for spouse to pick her up.
--- NOTE | 2023-06-15 15:05 | SUR.PHASEII ---
Dr. Vera called now that spouse is here at the hospital so he can give them an update about how the procedure went.
== END 2023-06-15 15:14 | disposition home or self-care (01) ==
PROVIDERS: Anesthesiology; PCP Family Medicine; Visit Provider Student in an Organized Health Care Education/Training Program
PROC: 0U5B8ZZ Destruction of Endometrium, Via Natural or Artificial Opening Endoscopic (ICD-10-PCS; CPT 58563; principal; 2023-06-15 12:00)
DX: C54.1 Malignant neoplasm of endometrium (principal); I12.9 Hypertensive chronic kidney disease with stage 1 through stage 4 chronic kidney disease, or unspecified chronic kidney disease; N18.30 Chronic kidney disease, stage 3 unspecified; K21.9 Gastro-esophageal reflux disease without esophagitis; E07.9 Disorder of thyroid, unspecified; F31.9 Bipolar disorder, unspecified; Z98.84 Bariatric surgery status; E66.01 Morbid (severe) obesity due to excess calories; Z68.41 Body mass index [BMI] 40.0-44.9, adult
CPT/HCPCS: 58558; 36415; 80178; 85610; 85730; 88305; 88342; A9270; J1100; J2250; J2405; J2704; J3010; J7120

== ENCOUNTER 2023-06-18 09:41 | Inpatient (IN) | payer OTHER, SELFPAY ==
[2023-06-18] VITALS (18 sets, daily range): BP systolic 116–154; BP diastolic 68–111; PULSE 71–96; RESP 16–38; TEMP 36.1–36.6; O2SAT 95–100; BMI 44.2
--- NOTE | ~2023-06-18 | XR_ITS ---
Upright portable view of the abdomen Clinical history: NG tube placement Findings: NG tube appears to curve back upon itself at the GE junction region with tip directed super iorly off the edge of the image. Multiple dilated small bowel loops are present. No abnormal mass les ion or calcification is seen. Osseous structures are intact. Impression: Malpositioned NG tube, which curls back upon itself at the GE junction, with tip directed superiorly, projecting back at least to the upper thoracic esophagus. Replacement/repositioning required. Multiple dilated small bowel loops. Reviewed, dictated and finalized at location M. Impression: Malpositioned NG tube, which curls back upon itself at the GE junction, with ti p directed superiorly, projecting back at least to the upper thoracic esophagus . Replacement/repositioning required. Multiple dilated small bowel loops.
--- NOTE | ~2023-06-18 | XR_ITS ---
Portable chest x-ray Comparison: 05/29/2016 Clinical History: Hypoxia Findings: There is discoid bibasilar atelectasis or scarring with low lung volumes. Cardiomediastin al silhouette is stable. Bones and soft tissues are unremarkable. Impression: Discoid bibasilar atelectasis or scarring, with low lung volumes. Reviewed, dictated and finalized at location . Impression: Discoid bibasilar atelectasis or scarring, with low lung volumes.
--- NOTE | ~2023-06-18 | CT_ITS ---
EXAMINATION: CT abdomen pelvis w con DATE: 06/19/2023 13:23 INDICATION: Diaphoresis. Leukocytosis. TECHNIQUE: Computed tomography (CT) of the abdomen and pelvis was performed with 100 mL Omnipaque 350 intravenous contrast. Automated exposure control and iterative reconstruction technique were employe d. The dose-length product was 1818.81 mGy-cm. COMPARISON: CT abdomen and pelvis 06/18/2023 FINDINGS: The visualized portions of the lung bases demonstrate mild atelectasis. There are trace ple ural effusions. The heart size is normal. There are coronary artery calcifications. No pericardial ef fusion. There is fluid in the esophagus. There is a lap band in expected position. The liver is sintia l. There are gallstones and contrast in the gallbladder, which is normal in size. There is a 8 mm hyp odense mass in the spleen, likely granulomatous disease. The pancreas and adrenal glands are normal. There are cysts in the kidneys measuring up to 3.9 cm on the left. There is mild left para-aortic lym phadenopathy. There is left internal iliac lymphadenopathy. There are multiple dilated loops of small bowel. The appendix is normal. There is a small volume of ascites. There is nodular peritoneal thick ening. There is irregular thickening in the endometrial complex to 4.5 cm. There is lumbar levocurvat ure and severe lower lumbar spondylosis. IMPRESSION: 1. Dilated small bowel, consistent with adynamic ileus versus small bowel obstruction. 2. Thickened endometrial complex, consistent with endometrial carcinoma. 3. Small volume of ascites. Nodular peritoneal thickening, consistent with carcinomatosis. 4. Left internal iliac and left para-aortic lymphadenopathy, consistent with metastatic disease. Reviewed, dictated and finalized at location A. IMPRESSION: 1. Dilated small bowel, consistent with adynamic ileus versus small bowel obstr uction. 2. Thickened endometrial complex, consistent with endometrial carcinoma. 3. Small volume of ascites. Nodular peritoneal thickening, consistent with carc inomatosis. 4. Left internal iliac and left para-aortic lymphadenopathy, consistent with me tastatic disease.
--- NOTE | ~2023-06-18 | XR_ITS ---
EXAMINATION: XR_FLGTUBINS_CR DATE: 06/20/2023 12:55 INDICATION: Small bowel obstruction. TECHNIQUE: I attempted to place a nasogastric tube under fluoroscopic guidance. I injected 10 mL Omni paque 350 through the tube in the esophagus. One image was obtained. The fluoroscopy exposure time wa s 3.7 minutes. COMPARISON: CT abdomen and pelvis 06/20/23 FINDINGS: The image demonstrates the nasogastric tube at the gastroesophageal junction. I could not p ass the tube through the Lap band. I removed the tube. IMPRESSION: 1. Failed fluoroscopy-guided nasogastric tube placement. I could not pass the tube through the Lap ba nd. Reviewed, dictated and finalized at location A. IMPRESSION: 1. Failed fluoroscopy-guided nasogastric tube placement. I could not pass the t ube through the Lap band.
--- NOTE | ~2023-06-18 | US_ITS ---
EXAMINATION: US abdomen limited DATE: 06/18/2023 19:06 INDICATION: Acute cholecystitis. TECHNIQUE: Multiple grayscale and Doppler ultrasound images of the abdomen were obtained. COMPARISON: CT abdomen and pelvis 06/18/2023 FINDINGS: The pancreas is obscured by bowel gas. The liver is normal without focal lesion. There is n ormal flow in main portal vein. There are gallstones in the gallbladder, which is normal in size. Gal lbladder wall thickening is noted. There is no sonographic Coelho sign. The common duct is normal and measures 4 mm. IMPRESSION: 1. Cholelithiasis. Gallbladder wall thickening is likely secondary to interstitial edema. Reviewed, dictated and finalized at location E. IMPRESSION: 1. Cholelithiasis. Gallbladder wall thickening is likely secondary to interstit ial edema.
--- NOTE | ~2023-06-18 | XR_ITS ---
EXAM: XR sm bowel follow through WS DATE: 06/19/2023 18:35 HISTORY: Possible small bowel obstruction . COMPARISON: CT abdomen pelvis 06/19/2023. FINDINGS: Gastric balloon port over the right abdomen. 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 Following contrast demonstration, contrast fills multiple loops of dilated jejunum. Small bowel loops are dilated up to 6.0 cm, which is increased since the prior exam. Contrast did not progress b eyond the proximal/mid jejunum by the 3 hour image. IMPRESSION: Contrast did not progress beyond the proximal/mid jejunum in this examination. Increased small bowel dilation since the prior CT. Findings may represent worsening small bowel obstruction or ileus. Recommend follow-up KUB in the morning. Reviewed, dictated and finalized at location K. IMPRESSION: Contrast did not progress beyond the proximal/mid jejunum in this e xamination. Increased small bowel dilation since the prior CT. Findings may rep resent worsening small bowel obstruction or ileus. Recommend follow-up KUB in t he morning.
--- NOTE | ~2023-06-18 | CT_ITS ---
EXAMINATION: CT abdomen pelvis w con DATE: 06/18/2023 12:41 INDICATION: Diffuse abdominal pain. No bowel movement for 2 weeks. Uterine cancer. TECHNIQUE: Computed tomography (CT) of the abdomen and pelvis was performed with 100 CC Omnipaque 350 intravenous contrast. Automated exposure control and iterative reconstruction technique were employe d. Exam dose: 1770.87 mGy-cm total exam DLP. COMPARISON: May 30, 2023 KUB FINDINGS: There is bibasilar infiltrate and/atelectasis, involving lingula, middle lobe and both lowe r lobes. Small sliding hiatal hernia. Lap band around proximal stomach, left upper quadrant. Multiple gallstones are noted. There is fluid around the gallbladder and in the right paracolic gutte r. Acute cholecystitis is not excluded. However the gallbladder wall does not appear thickened. Clini ruben correlation is advised. Ultrasound examination and possibly radionuclide hepatic there is scan ma y be of benefit as clinically appropriate. The liver, spleen and pancreas are unremarkable. No bile duct or pancreatic duct dilatation. Normal morphology of the adrenal glands. Scattered renal cysts, primarily on the left including one larger left renal cyst measuring up to 3.4 cm. No urinary tract calculus or hydroureteronephrosis. There is a Goodrich catheter within the evacuated ur inary bladder. Prominent distention of the endometrial cavity of uterus measuring up to 2.3 cm AP dimension in the f undic area. Gynecology consult should be considered. Nonspecific dilated small bowel segments with air-fluid levels, measuring up to 3.7 cm diameter which may be due to adynamic ileus or less likely obstruction; no transition point is evident.. Prominent amount of fecal material in the right colon. No intraperitoneal free air. Normal caliber of the abdominal aorta. No intraperitoneal or retroperitoneal or pelvic mass lesion or adenopathy or ascites. IMPRESSION: Dilated small bowel with air-fluid level; consider adynamic ileus versus distal small prashanth wel obstruction Cholelithiasis, pericholecystic fluid, mild fluid accumulation in right paracolic gutter. Cannot excl ude acute cholecystitis Gastric lap band Small sliding hiatal hernia Bibasilar infiltrate and/atelectasis Bilateral renal cysts Reviewed, dictated and finalized at Location A. Reviewed, dictated and finalized at location A. IMPRESSION: Dilated small bowel with air-fluid level; consider adynamic ileus versus distal small bowel obstruction Cholelithiasis, pericholecystic fluid, mild fluid accumulation in right paracol ic gutter. Cannot exclude acute cholecystitis Gastric lap band Small sliding hiatal hernia Bibasilar infiltrate and/atelectasis Bilateral renal cysts
--- NOTE | ~2023-06-18 | CT_ITS ---
EXAMINATION: CT abdomen pelvis wo con DATE: 06/20/2023 10:22 INDICATION: Abdominal pain. TECHNIQUE: Computed tomography (CT) of the abdomen and pelvis was performed without intravenous contr ast. Automated exposure control and iterative reconstruction technique were employed. The dose-length product was 1791.54 mGy-cm. COMPARISON: CT abdomen and pelvis 06/19/2023 FINDINGS: The visualized portions of the lung bases demonstrate moderate atelectasis. No pleural effu vance. The heart size is normal. There are coronary artery calcifications. No pericardial effusion. Th ere is fluid in the esophagus. There is a lap band of the proximal stomach in expected position. The liver is normal. There are gallstones and contrast in the gallbladder, which is normal in size. The s pleen, pancreas, and adrenal glands are normal. There are cysts in the kidneys measuring up to 3.9 cm on the left. The kidneys are normal. There are multiple dilated loops of small bowel. There is a tra nsition point in the terminal ileum. There is oral contrast in the stomach and small bowel. The stoma ch is distended. There is a small volume of ascites. There is peritoneal nodularity, consistent with carcinomatosis. The bladder is decompressed by a Goodrich catheter. There is mild bilateral internal sarah ac lymphadenopathy. There is a mildly enlarged left para-aortic lymph node. There is severe lower lum bar spondylosis. IMPRESSION: 1. Dilated small bowel with transition point in the terminal ileum without passage of yesterday's ora l contrast beyond the transition point, consistent with small bowel obstruction. 2. Small volume of ascites. Nodular peritoneal thickening, consistent with carcinomatosis. 3. Mild bilateral internal iliac and left para-aortic lymphadenopathy, consistent with metastatic dis ease. Reviewed, dictated and finalized at location A. IMPRESSION: 1. Dilated small bowel with transition point in the terminal ileum without pass age of yesterday's oral contrast beyond the transition point, consistent with s mall bowel obstruction. 2. Small volume of ascites. Nodular peritoneal thickening, consistent with carc inomatosis. 3. Mild bilateral internal iliac and left para-aortic lymphadenopathy, consiste nt with metastatic disease.
--- NOTE | ~2023-06-18 | XR_ITS ---
Supine and upright views of the abdomen Clinical history: Abdominal distention COMPARISON: 06/19/2023 Findings: Exam is suboptimal related to patient body habitus. There are distended loops of bowel in t he right abdomen. There is oral contrast within multiple small bowel loops in the left abdomen, and i n the gastric fundus. No definite free air seen. Impression: Diffuse small bowel ileus versus small bowel obstruction. Reviewed, dictated and finalized at location M. Impression: Diffuse small bowel ileus versus small bowel obstruction.
--- NOTE | 2023-06-18 10:11 | ED.ABDPAIN ---
HPI - Abdominal Pain General Chief Complaint: Abdominal Pain Stated Complaint: abd pain. Recent diagnosis of cancer Time Seen by Provider: 06/18/23 10:00 Source: patient Mode of arrival: ambulatory Limitations: no limitations History of Present Illness HPI narrative: Mayra is a 58-year-old female patient presenting to the emergency room cup with complaints of lower abdominal pain since March. She has a recent diagnosis of uterine cancer and has a follow-up with U rda/oncology on . Had a hysteroscopy completed by Dr. Vera on 06/15/23 reports she has not had a bowel movement on past 2 weeks. No nausea or vomiting. Was seen last week for urinary retention and a catheter was placed. She rates her abdominal pain 8/10 currently. Pain is c/o abdomen pain on the right side in the lower abdomen. Reports she has not been passing gas and feels bloated. Related Data Home Medications Medication Instructions Recorded Confirmed lamotrigine 200 mg tablet 200 mg PO DAILY 04/01/19 06/18/23 lithium carbonate 300 mg capsule 300 mg PO DAILY 04/01/19 06/18/23 lurasidone 60 mg tablet (Latuda) 60 mg PO DAILY 04/01/19 06/18/23 quetiapine 100 mg tablet 200 mg PO QHS 04/22/22 06/18/23 hydrochlorothiazide 12.5 mg tablet 25 mg PO DAILY 06/22/22 06/18/23 amiloride 5 mg tablet 5 mg PO DAILY 08/24/22 06/18/23 metoprolol succinate 25 mg 12.5 mg PO BID 08/24/22 06/18/23 tablet,extended release 24 hr liothyronine 5 mcg tablet 5 mcg PO DAILY 10/19/22 06/18/23 losartan 50 mg tablet 50 mg PO DAILY 01/25/23 06/18/23 olanzapine 10 mg tablet 5 mg PO DAILY 04/28/23 06/18/23 apixaban 5 mg tablet (Eliquis) 10 mg PO BID 05/25/23 06/18/23 Allergies Allergy/AdvReac Type Severity Reaction Status Date / Time No Known Allergies Allergy Verified 06/18/23 16:40 Review of Systems Review of Systems: Pertinent positives per HPI. Patient denies any fever, chills, rash, headache, visual changes, dizziness, cough, shortness of breath, chest pain, palpitations, nausea, vomiting, diarrhea. [facility] Past Medical History Medical History Arthritis Bipolar disorder Bloating Cataract Change in bowel habits Chicken pox Constipation Depression Gallstones GERD (gastroesophageal reflux disease) History of one miscarriage History of torn meniscus of left knee surgical repair 04/08/2021 HTN (hypertension) Kidney disease CKD stage III Pneumonia Skin tag of vaginal mucosa Thyroid disorder Vaginitis Surgical History Surgical History History of bilateral tubal ligation History of left knee surgery Hx of section LAP-BAND surgery status Family History Family History Mother Patient's mother is in good health Sibling Patient's sister is in good health Patient's brother is in good health Father CHF (congestive heart failure) Alcoholism Hypertension Depression Heart disease Grandparent Cancer Diabetes mellitus Social History Social History Smoking status: Never smoker Alcohol intake: never Substance use: never Substance use type: does not use Do You Feel Safe in your Home?: Yes Lack of Transportation: No Lack of Food: Never True Current Housing: I Have Housing Concerned About Future Housing: No Difficulty Paying Gas/Electric Bills: No Difficulty Paying for Meds: No Currently Unemployed: No Education: Bachelor's Degree Difficulty w/ Childcare or Family Care: No Living arrangements: with family Spiritual care concerns: No Comments At the time of my signature, I reviewed and agree with the nursing past medical, surgical, social, and family history. There is no relevant family history pertinent to the patient complaint. Exam Narrative: General: Well-develop
[2023-06-18] MEDS: SODIUM CHLORIDE 0.9% IV 1,000 ML 999 ML IV CONT ×3 (10:54→14:45)
[2023-06-18 11:00] LABS: Basophils Absolute Auto 0.1 K/mm3 (0.0-0.1); Basophils Percent Auto 0.3 % (0.2-1.2); Eosinophils Absolute Auto 0.1 K/mm3 (0-0.3); Eosinophils Percent Auto 0.3 % (0-4.4); Hematocrit 43.9 % (37.0-47.0); Hemoglobin 14.7 g/dL (12.0-15.0); Immature Granulocyte Absolute 0.14 K/mm3 (0.00-0.031); Immature Granulocyte Percent A 0.8 % (0-0.5); Lymphocytes Percent Auto 6.1 % (18.3-44.2); Mean Corpuscular HGB Conc 33.5 g/dl (32-36); Mean Corpuscular Hemoglobin 28.3 pg (26-34); Mean Corpuscular Volume 84.6 fl (80-100); Mean Platelet Volume 9.3 fl (7.4-10.4); Monocytes Absolute Auto 1.6 K/mm3 (0.1-0.6); Monocytes Percent Auto 8.8 % (2.6-8.5); Neutrophils Percent Auto 83.7 % (45.5-73.1); Platelet Count Result 557 k/mm3 (150-375); Red Blood Count 5.19 M/mm3 (4.2-5.4); Red Cell Distribution Width 13.3 % (11.5-14.5); White Blood Count 17.9 K/mm3 (4.5-10.0)
[2023-06-18 11:22] LABS: Bacteria Urine None Seen /hpf; RBC Urine >100 /hpf (0-2); Squamous Epithelial Cell Urine None seen /hpf (Few); WBC Urine 21-50 /hpf
[2023-06-18 11:25] LABS: Appearance Urine Cloudy (Clear); Bilirubin Urine Negative (Negative); Blood Urine 3+ (Negative); Glucose Urine UA Negative (Negative); Ketones Urine 1+ mg/dL (Negative); Leukocyte Esterase Ur 1+ LEU/UL (Negative); Nitrate Urine Negative (Negative); Protein Urine 2+ mg/dL (Negative); Specific Grav Ur 1.028 (1.001-1.035)
[2023-06-18 11:29] LABS: Color Urine Brown (Yellow)
[2023-06-18 11:32] LABS: Add Urine Microscopic? YES
[2023-06-18 12:15] LABS: Estimated CRCL calculation 47 ml/min; Estimated Glomerular Filt Rate 31
[2023-06-18] MEDS: ONDANSETRON INJ 4 MG/2 ML VIAL IV PUSH (12:25)
[2023-06-18] MEDS: MORPHINE SULFATE (*CRX) 4 MG/ML INJ IV PUSH (12:25)
[2023-06-18 12:42] LABS: Alanine Aminotransferase 16 U/L (6-35); Albumin Level 3.9 g/dL (3.5-5.1); Alkaline Phosphatase 94 U/L (38-126); Anion Gap 6 mmol/L (8-16); Aspartate Amino Transferase 28 U/L (14-36); Bilirubin,Total 0.6 mg/dL (0.2-1.3); Blood Urea Nitrogen 31 mg/dL (7-17); Calcium 10.3 mg/dL (8.4-10.2); Carbon Dioxide 28 mmol/L (22-30); Chloride 95 mmol/L (98-107); Estimated CRCL calculation 61 ml/min; Estimated Glomerular Filt Rate 42; Glucose 171 mg/dL (65-110); Lipase 104 U/L (23-300); Sodium 129 mmol/L (137-145)
[2023-06-18] MEDS: PIPERACILLN/TAZ 3.375GM/NS50ML 3.375 GM/50 ML BAG IVPB ×2 (14:44→20:51)
[2023-06-18] MEDS: SODIUM CHLORIDE 0.9% IV 1,000 ML 125 ML IV CONT (16:00)
--- NOTE | 2023-06-18 16:38 | ADMGEN ---
This patient, Marya Howell, was admitted to Medical Room 340-01. Patient/family oriented to hospital policies and general routines including ID bracelet, bed and alarms, visiting hours, pain management, procedures, bathroom and other care routines, personal items, smoking policy, room service/diet, and visiting hours. Information on how to activate the Rapid Response Team has been discussed. Patient/Family are encouraged to report perceived risks to care and to ask questions if they do not understand what they are told or what they should do.
--- NOTE | 2023-06-18 16:54 | WPDCN ---
Assessment and Plan Assessment and plan (1) Gallstones: Code(s): K80.20 - Calculus of gallbladder without cholecystitis without obstruction Status: Acute Assessment and Plan: Patient has cholelithiasis noted on CT scan. There is questionable inflammatory changes around the wall of gallbladder. She does have some tenderness there but she is having tenderness in the other parts of the abdomen as well. These issues of abdominal pain and constipation having going on for many months now. She states she does not eat very much without is likely due to her lap band. Abdominal ultrasound is going to be done to follow-up on the CT scan findings of the gallbladder. For now and there is no obvious evidence that she needs to have a cholecystectomy. (2) UTI (urinary tract infection): Qualifiers: Encounter type: initial encounter Indwelling urinary catheter type: indwelling urethral catheter Urinary tract infection type: catheter-associated UTI Qualified Code(s): T83.511A - Infection and inflammatory reaction due to indwelling urethral catheter, initial encounter; N39.0 - Urinary tract infection, site not specified Code(s): N39.0 - Urinary tract infection, site not specified Status: Acute Assessment and Plan: Patient has a Goodrich catheter in place and has had it in place for about a week. This chronic urinary retention needs to be some followed up in worked up by a urologist. Will consult Urology see the patient tomorrow. In addition the patient's urinalysis shows characteristics consistent with urinary tract infection. This could contribute to her findings of possible ileus on CT scan. I doubt that she has a mechanical small-bowel obstruction from adhesions. (3) Adynamic ileus: Code(s): K56.0 - Paralytic ileus Status: Acute Assessment and Plan: She has air-fluid levels and dilated small bowel but no definite transition point. This could be an ileus to her urinary tract infection. Continue supportive management for now. She can go ahead and have some water and some ice chips. We will try to give her some GoLYTELY slowly to see if we can promote copious amounts of the stool which is seen on CT scan. (4) Uterine mass: Code(s): N85.8 - Other specified noninflammatory disorders of uterus Status: Acute Assessment and Plan: Biopsy results pending. She does have an outpatient see a third hand oncologist at [facility] later in the week. HPI Data of Consult Date/Time: 06/18/23 16:54 Requesting Physician: Hal Bustos MD Primary Care Provider: Marya Lau, Consult Narrative Reason for consult: Abdominal pain, obstipation, gallstones. Narrative: Marya Howell is a 58 year old female Who presented to the emergency room with complaints of not having had a bowel movement for over 2 weeks. She states that back in March she started having decreasing amounts of bowel movements and has been having to take laxatives since that time to have promote bowel movements. She is able to eat and has been eating small amounts. She has had no nausea or vomiting. She had a hysteroscopy performed by 1 of our third hand recently and a mass was seen it was biopsied. No final pathology result has been obtained yet however the patient has had appointment to see a third hand oncologist at [facility] in the near future. She also has had problems with urinary retention and had a Goodrich catheter placed at [facility] over a week ago. She had appointment to see a urologist tomorrow but presented to the emergency room here at [facility] in has been admitted. Urinalysis reveals appears to be a urinary tract infection as well. She states she has been having some flatus but no bowel movements. Review of Systems Review of Systems: The remainder of the review of systems to include constitutional, HEENT, cardiovascular, respiratory, GI, , integumentary, muscu
--- NOTE | 2023-06-18 17:33 | PM.IMHP ---
H&P: HPI History of Present Illness Date/Time: 06/18/23 16:00 Chief Complaint: Abdominal pain. Narrative: This is a 58-year-old female with hypertension, hypothyroidism, paroxysmal atrial fibrillation on anticoagulation, hypothyroidism, obstructive sleep apnea, prediabetes, and bipolar disorder who presented to the emergency department for evaluation of abdominal pain. Last month she was seen ED for evaluation of ongoing pelvic pain at which time an ultrasound showed an enlarged uterus, thickened endometrium, and an intrauterine cystic mass. She had a hysteroscopy with dilation curettage and biopsy per Dr. Vera last week at which time he noted an exophytic mass extruding from the cervical os with high suspicion for malignancy; pathology is still pending but she has been referred to a gynecology/medical review specialist at [facility] with an appointment set for Monday. She has been having issues urinating and having bowel movements and has had a Goodrich catheter for the past 2 weeks; she has not had a bowel movement in the same amount of time. She reports increasing, sharp pain in the pelvic region which is worse with movement and standing and she has become progressively weak due to lack of activity and poor appetite. She reports a 13 lb weight loss in the last 1.5 weeks. She feels weak and dehydrated. She denies fever, cold and flu symptoms, chest pain, pleuritic pain, shortness of breath, cough, lower extremity edema, and calf pain. Of note, she was in the ED several days ago with hematuria and urine culture collected at that time grew stenotrophomonas maltophilia sensitive to levofloxacin and trimethoprim/sulfamethoxazole. In the ED: She was afebrile on arrival. Blood pressures have been running in the 140s to 160s systolic. Labs were significant for a WBC count of 17.9, sodium 129, chloride 95, BUN 31, creatinine 1.30, glucose 171, calcium 10.3. Urine was positive for 2+ protein, 1+ ketones, 3+ blood, 1+ leukocyte esterase, greater than 100 RBC, and 21 to 50 WBC. No bacteria or squamous cells were noted on microscopy. CT of the abdomen and pelvis showed dilated small bowel with air-fluid levels consistent with adynamic ileus versus distal small-bowel obstruction and cholelithiasis with pericholecystic fluid and mild fluid accumulation the right pericolic gutter. An abdominal ultrasound showed cholelithiasis with gallbladder wall thickening likely secondary to interstitial edema. She was given IV fluids and Zosyn for suspected UTI and she is being admitted in this setting for further treatment and evaluation given the above findings. Review of Systems Review of Systems: Twelve systems were reviewed and are negative except for as per HPI. [facility] Past Medical History Medical History (Updated 06/19/23 @ 00:20 by Larissa Diaz PA-C) Arthritis Bipolar disorder Chicken pox Chronic anticoagulation Chronic kidney disease, stage 3 Depression Gallstones Gastroesophageal reflux disease History of one miscarriage History of torn meniscus of left knee Repair March 2021. Hypertension Hypothyroidism Obstructive sleep apnea on CPAP Paroxysmal atrial fibrillation Pneumonia Pre-diabetes Surgical History Surgical History (Updated 06/18/23 @ 23:14 by Larissa Diaz PA-C) History of bilateral tubal ligation History of section History of laparoscopic adjustable gastric banding History of left knee surgery Family History Family History Mother Patient's mother is in good health Sibling Patient's sister is in good health Patient's brother is in good health Father CHF (congestive heart failure) Alcoholism Hypertension Depression Heart disease Grandparent Cancer Diabetes mellitus Social History Social History (Updated 06/18/23 @ 23:17 by Larissa Diaz PA-C) Social History: Surrogate medical decision maker: Edouard Howell, spouse. Code status: Full code. [place]
[2023-06-18] MEDS: PEG (High)/E-LYTE SOLN 4,000 ML BTL 3000 ML PO (18:05)
[2023-06-19] MEDS: ONDANSETRON INJ 4 MG/2 ML VIAL IV PUSH ×4 (00:19→23:54)
--- NOTE | 2023-06-19 00:21 | ECG_ITS ---
Measurements Intervals [place] Rate: 84 P: 31 NE: 181 QRS: 40 QRSD: 103 T: 9 QT: 367 QTc: 435 Interpretive Statements SINUS RHYTHM BORDERLINE R WAVE PROGRESSION, ANTERIOR LEADS BORDERLINE T WAVE ABNORMALITY- ANTERIOR LEADS BASELINE ARTIFACT- I, III, AVR, AVL, AVF, V4 BORDERLINE ECG COMPARED TO ECG 03/30/2020 16:46:11 NO SIGNIFICANT CHANGES Electronically Signed On 06-19-2023 6:42:48 CDT by Catrachito Babin D.O.
[2023-06-19 00:35] LABS: Anion Gap 6 mmol/L (8-16); Blood Urea Nitrogen 24 mg/dL (7-17); Calcium 9.5 mg/dL (8.4-10.2); Carbon Dioxide 27 mmol/L (22-30); Chloride 98 mmol/L (98-107); Estimated CRCL calculation 66 ml/min; Estimated Glomerular Filt Rate 46; Glucose 146 mg/dL (65-110); Magnesium 2.5 mg/dL (1.6-2.3); Potassium 4.2 mmol/L (3.4-5.0); Sodium 131 mmol/L (137-145)
[2023-06-19 00:41] LABS: Hemoglobin A1C 6.6 % (<5.7)
[2023-06-19] MEDS: lamoTRIgine 100 MG TABLET 200 MG PO ×2 (01:59→20:42)
[2023-06-19] MEDS: LITHIUM CARBONATE 300 MG CAPSULE PO ×2 (01:59→20:43)
[2023-06-19] MEDS: levoFLOXacin 750 MG/D5W 150 ML 750 MG/150 ML BAG 100 MG IVPB (01:59)
[2023-06-19] MEDS: QUEtiapine FUMARATE 100 MG TABLET 200 MG PO ×2 (01:59→20:43)
[2023-06-19 06:00] VITALS: BP 140/83; PULSE 90; RESP 18; TEMP 36.3; O2SAT 97
[2023-06-19] MEDS: SODIUM CHLORIDE 0.9% IV 1,000 ML 125 ML IV CONT (06:15)
[2023-06-19 08:00] VITALS: O2SAT 95
[2023-06-19 08:00] LABS: Glucose Point of Care 128 mg/dl (65-105)
[2023-06-19] MEDS: APIXABAN 5 MG TABLET PO (08:45)
[2023-06-19] MEDS: LOSARTAN POTASSIUM 50 MG TABLET PO (08:45)
[2023-06-19] MEDS: LIOTHYRONINE SODIUM 5 MCG TABLET PO (08:45)
[2023-06-19] MEDS: OLANZapine 5 MG TABLET PO (08:45)
[2023-06-19] MEDS: aMILoride HCL 5 MG TABLET PO (08:45)
[2023-06-19 08:46] VITALS: PULSE 90
[2023-06-19] MEDS: METOPROLOL SUCCINATE EXT REL 25 MG TABCR PO (08:46)
[2023-06-19 08:55] LABS: Hematocrit 41.7 % (37.0-47.0); Hemoglobin 13.6 g/dL (12.0-15.0); Mean Corpuscular HGB Conc 32.6 g/dl (32-36); Mean Corpuscular Hemoglobin 28.1 pg (26-34); Mean Corpuscular Volume 86.2 fl (80-100); Platelet Count Result 502 k/mm3 (150-375); Red Blood Count 4.84 M/mm3 (4.2-5.4); Red Cell Distribution Width 13.3 % (11.5-14.5); White Blood Count 18.2 K/mm3 (4.5-10.0)
[2023-06-19 09:07] LABS: Alanine Aminotransferase 15 U/L (6-35); Albumin Level 3.6 g/dL (3.5-5.1); Alkaline Phosphatase 93 U/L (38-126); Anion Gap 9 mmol/L (8-16); Aspartate Amino Transferase 23 U/L (14-36); Bilirubin,Total 0.5 mg/dL (0.2-1.3); Blood Urea Nitrogen 24 mg/dL (7-17); Calcium 9.7 mg/dL (8.4-10.2); Carbon Dioxide 24 mmol/L (22-30); Chloride 100 mmol/L (98-107); Estimated CRCL calculation 66 ml/min; Estimated Glomerular Filt Rate 46; Glucose 148 mg/dL (65-110); Potassium 4.3 mmol/L (3.4-5.0); Sodium 133 mmol/L (137-145)
[2023-06-19] MEDS: PIPERACILLN/TAZ 3.375GM/NS50ML 3.375 GM/50 ML BAG IVPB (09:36)
[2023-06-19] MEDS: metroNIDAZOLE 500 MG/ISO 100ML 500 MG/100 ML BAG 100 MG IVPB ×4 (10:13→23:54)
[2023-06-19 11:59] VITALS: BMI 44.2
[2023-06-19 12:12] LABS: Glucose Point of Care 197 mg/dl (65-105)
[2023-06-19 12:34] VITALS: BP 138/93; PULSE 97; TEMP 35.8; O2SAT 98
[2023-06-19 13:08] LABS: Hematocrit 46.7 % (37.0-47.0); Mean Corpuscular HGB Conc 32.1 g/dl (32-36); Mean Corpuscular Hemoglobin 28.5 pg (26-34); Mean Corpuscular Volume 88.6 fl (80-100); Mean Platelet Volume 9.2 fl (7.4-10.4); Platelet Count Result 634 k/mm3 (150-375); Red Blood Count 5.27 M/mm3 (4.2-5.4); Red Cell Distribution Width 13.4 % (11.5-14.5); White Blood Count 22.8 K/mm3 (4.5-10.0)
[2023-06-19 13:18] LABS: Lactic Acid Reflex 1.7 mmol/L (0.7-2.0)
[2023-06-19 13:21] LABS: Alanine Aminotransferase 18 U/L (6-35); Albumin Level 4.2 g/dL (3.5-5.1); Alkaline Phosphatase 92 U/L (38-126); Anion Gap 12 mmol/L (8-16); Aspartate Amino Transferase 31 U/L (14-36); Bilirubin,Total 0.8 mg/dL (0.2-1.3); Blood Urea Nitrogen 27 mg/dL (7-17); Calcium 10.2 mg/dL (8.4-10.2); Carbon Dioxide 21 mmol/L (22-30); Chloride 100 mmol/L (98-107); Estimated CRCL calculation 66 ml/min; Estimated Glomerular Filt Rate 46; Glucose 201 mg/dL (65-110); Potassium 4.6 mmol/L (3.4-5.0); Sodium 133 mmol/L (137-145)
--- NOTE | 2023-06-19 13:57 | PM.PNGS ---
Progress Note: A&P Assessment and Plan (1) Gallstones: Code(s): K80.20 - Calculus of gallbladder without cholecystitis without obstruction Status: Acute Assessment and Plan: RUQ US yesterday showed cholelithiasis with gallbladder wall thickening suggesting this is likely secondary to interstitial edema. Repeat CT scan of the abdomen and pelvis done today by Hospitalist that showed cholelithiasis with no inflammatory changes. She does not have focal tenderness in this area and more diffusely tender across the mid and upper abdomen. No findings to suggest she has acute cholecystitis. (2) UTI (urinary tract infection): Qualifiers: Encounter type: initial encounter Indwelling urinary catheter type: indwelling urethral catheter Urinary tract infection type: catheter-associated UTI Qualified Code(s): T83.511A - Infection and inflammatory reaction due to indwelling urethral catheter, initial encounter; N39.0 - Urinary tract infection, site not specified Code(s): N39.0 - Urinary tract infection, site not specified Status: Acute Assessment and Plan: Chronic urinary retention with a Goodrich catheter in place. UA suggests UTI with urine culture pending. Urology has been consulted. (3) Adynamic ileus: Code(s): K56.0 - Paralytic ileus Status: Acute Assessment and Plan: Still not having any bowel movements and was only able to tolerate less than half of the GoLYTELY. Repeat CT scan of the abdomen and pelvis today again suggested ileus versus small bowel obstruction. Will order a water-soluble small bowel follow through to further evaluate. This will hopefully also be therapeutic. (4) Uterine mass: Code(s): N85.8 - Other specified noninflammatory disorders of uterus Status: Acute Assessment and Plan: Pathology still pending from biopsy. Repeat CT scan done today showed a thickened endometrial complex again, but this time mentions nodular peritoneal thickening c/w carcinomatosis, and left internal iliac and left para-aortic lymphadenopathy consistent with metastatic disease. There is no evidence of any masses causing a mechanical bowel obstruction on CT. Plan I have discussed the patient's case and plan of care with Dr. Hernandez. Subjective Subjective Date/Time Seen: 06/19/23 13:57 Interval history: This is a 58-year-old woman who was admitted with obstipation/ileus, UTI, and cholelithiasis with possible findings of cholecystitis. She was started on GoLYTELY yesterday and was able to take in a little less than half of the bottle. She began to feel nauseous in the afternoon and stopped taking the GoLYTELY. She denies any abdominal pain and is no longer feeling nauseous. No vomiting. She reports having some lower abdominal pain with movement. She was able to get up to the chair today. She is passing flatus, but no BM. The patient also appears diaphoretic. I asked her if she was cold or hot, and she states she noticed that she was sweating but feels kind of cool. No other complaints at this time. Exam Const: General: comfortable, no acute distress and diaphoretic GI: Inspection: Pannus present, obesity and other (port in place for lap band) GI Palp: Yes Soft to palpation (softer across the lower abdomen but full and slightly firm in the upper abd), Yes Tenderness to palpation present (GI) (mild diffuse tenderness across the mid to upper abd c no peritoneal signs), No Guarding due to palpation present (GI), No Hernia present and No Rebound tenderness present Auscultation: normal bowel sounds Objective Data Vital Signs Vital Signs: Vital Signs - 24 hr 06/18/23 14:01 06/18/23 14:15 06/18/23 14:31 Temperature Pulse Rate 80 83 79 Respiratory Rate 24 H 25 H Blood Pressure 145/99 H 146/95 H Pulse Oximetry 99 100 Oxygen Delivery 06/18/23 15:01 06/18/23 16:00 06/18/23 16:02 Temperature Pulse Rate 76 79 79 Respiratory Rate 28 H 26 H 23 H Blood
--- NOTE | 2023-06-19 14:32 | WPDURCON ---
Assessment and Plan Assessment and plan (1) Urinary retention: Code(s): R33.9 - Retention of urine, unspecified Status: Acute Assessment and Plan: She has had an indwelling catheter since 06/07/23. Etiology likely due to severe constipation/ileus and likely worsened due to suspected endometrial cancer with metastases and pelvic lymphadenopathy. Consider void trial prior to discharge if resolution of ileus. Continue tenorio catheter at this time. (2) Urinary tract infection: Code(s): N39.0 - Urinary tract infection, site not specified Status: Acute Assessment and Plan: UA abnormal, urine culture is pending at this time. Continue empiric antibiotics. (3) Hematuria: Qualifiers: Hematuria type: gross Qualified Code(s): R31.0 - Gross hematuria Code(s): R31.9 - Hematuria, unspecified Status: Inactive Assessment and Plan: Likely secondary to UTI and tenorio catheter trauma. Continue to monitor at this time. (4) Adynamic ileus: Code(s): K56.0 - Paralytic ileus Status: Acute Assessment and Plan: Being managed by general surgery. As above, consider voiding trial if this issue resolves (5) Uterine mass: Code(s): N85.8 - Other specified noninflammatory disorders of uterus Status: Acute Assessment and Plan: She has follow up with [facility] oncology scheduled Urology Consult Note HPI Date Seen: 06/19/23 Requesting Physician: Hal Bustos MD Primary Care Provider: Marya Lau DO Consult Narrative Narrative: Marya Howell is a 58 year old female currently admitted for gallstones and adynamic ileus who is being seen in consultation for urinary retention. She reports for the past two months she has had issues with abdominal pain and severe constipation. Sometime about 1 month ago she started having difficulty urinating. She was initially seen at [facility] ER on 06/07/23 due to urinary retention. A tenorio catheter was placed. She returned a few days later due to blood in her catheter which was then replaced and she was started on Keflex for a UTI. Unfortunately, she again developed blood in her catheter and presented to [place] ER on 06/14/23. She was started on CBI. Urine cleared and she was discharged home. Throughout her evaluation of abdominal pain and urinary retention, she was found to have a thickened endometrium and underwent hysteroscopy with D&C on 06/15/23 for endometrium that is highly suspicious for malignancy. She then presented to the ER on 06/18/23 with complaints of persistent abdominal pain after not having a bowel movement for 2 weeks. On arrival, her urine was noted to be grossly bloody and UA was concerning for infection. Tenorio catheter remains in place and she reports no issues with that. Her WBC is markedly elevated. Creatinine is consistent with baseline. She remains afebrile. Review of Systems Review of Systems: All systems reviewed & are unremarkable except as noted in HPI and below PMFSH Past Medical History Medical History (Updated 06/19/23 @ 15:36 by Yelena Baron PA-C) Arthritis Bipolar disorder Chicken pox Chronic anticoagulation Chronic kidney disease, stage 3 Depression Gallstones Gastroesophageal reflux disease History of one miscarriage History of torn meniscus of left knee Repair March 2021. Hypertension Hypothyroidism Obstructive sleep apnea on CPAP Paroxysmal atrial fibrillation Pneumonia Pre-diabetes Surgical History Surgical History (Updated 06/18/23 @ 23:14 by Larissa Diaz PA-C) History of bilateral tubal ligation History of section History of laparoscopic adjustable gastric banding History of left knee surgery Family History Family History Mother Patient's mother is in good health Sibling Patient's sister is in good health Patient's brother is in good health
--- NOTE | 2023-06-19 15:11 | P.PNIM_ITS ---
Progress Note: A&P Assessment and Plan (1) Urinary tract infection: Code(s): N39.0 - Urinary tract infection, site not specified Status: Acute (2) Adynamic ileus: Code(s): K56.0 - Paralytic ileus Status: Acute (3) Dehydration: Code(s): E86.0 - Dehydration Status: Acute (4) Cholelithiasis: Code(s): K80.20 - Calculus of gallbladder without cholecystitis without obstruction Status: Acute (5) Uterine mass: Code(s): N85.8 - Other specified noninflammatory disorders of uterus Status: Acute (6) Hyponatremia: Code(s): E87.1 - Hypo-osmolality and hyponatremia Status: Acute (7) Obstructive sleep apnea on CPAP: Code(s): G47.33 - Obstructive sleep apnea (adult) (pediatric) Status: Acute (8) Pre-diabetes: Code(s): R73.03 - Prediabetes Status: Acute (9) Chronic anticoagulation: Code(s): Z79.01 - half-way (current) use of anticoagulants Status: Acute (10) Paroxysmal atrial fibrillation: Code(s): I48.0 - Paroxysmal atrial fibrillation Status: Acute Plan Paralytic Ileus vs SBO * IV Fluids * General surgery consulted * GoLYTELY * Both CT scans showing paralytic ileus versus SBO * Abdominal x-ray with water-soluble pending * Clear liquid diet Uterine mass/suspicion of metastatic carcinoma * Per CT report * Biopsy at [facility] 1 week ago pending * Oncology consulted Cholelithiasis * CT scan showed cholelithiasis with gallstones and some wall thickening * General surgery consult to * IV fluids * WBCs are trending up * Patient currently denying any abdominal pain Leukocytosis * Trending up even on ABX therapy * Patient with the UTI * Continue Levaquin and Flagyl patient's previous urine culture from 06/12 was positive for Stenotrophomonas maltophilia only susceptible to Levaquin and Bactrim. Urinary retention with hematuria * Goodrich catheter placed 1 week ago due to urinary retention likely secondary to uterine mass * Hematuria noted * Eliquis on hold * Neurology consult in following UTI * Urine cultures * urine culture from 06/12 was positive for Stenotrophomonas maltophilia only susceptible to Levaquin and Bactrim. * Continue IV hydration. * Monitor CBC, CMP watch for sepsis. * Monitor vital signs. * Start antibiotics. * Start probiotics to prevent antibiotic induced diarrhea * Monitor for obstructive uropathy and pyelonephritis Paroxysmal atrial fib * Concurrently sinus rhythm * Holding Eliquis due to hematuria * Cardiac monitoring Prediabetic * Patient's A1c 6.6 * Sliding scale insulin * Accu-Cheks a.c. HS * Will speak with patient whether she wants to start any diabetic medications at discharge TRACY * Home CPAP when sleeping Code status: Full code per patient DVT prophylaxis: Lovenox Stress ulcer prophylaxis: Protonix 40 BID PT/OT notes: Pending Disposition: Patient continues admission for paralytic ileus versus SBO, uterine mass with possible wound carcinoma in his hematuria. General surgery, Urology and Oncology consult appreciate any further recommendations. Time Spent With Patient Time with patient: 25 - 35 minutes Subjective Date/time seen: 06/19/23 15:11 Interval history: (Medical Record) This is a 58-year-old female with hypertension, hypothyroidism, paroxysmal atrial fibrillation on anticoagulation, hypothy
--- NOTE | 2023-06-19 15:11 | PM.IMPN ---
Progress Note: A&P Assessment and Plan (1) Urinary tract infection: Code(s): N39.0 - Urinary tract infection, site not specified Status: Acute (2) Adynamic ileus: Code(s): K56.0 - Paralytic ileus Status: Acute (3) Dehydration: Code(s): E86.0 - Dehydration Status: Acute (4) Cholelithiasis: Code(s): K80.20 - Calculus of gallbladder without cholecystitis without obstruction Status: Acute (5) Uterine mass: Code(s): N85.8 - Other specified noninflammatory disorders of uterus Status: Acute (6) Hyponatremia: Code(s): E87.1 - Hypo-osmolality and hyponatremia Status: Acute (7) Obstructive sleep apnea on CPAP: Code(s): G47.33 - Obstructive sleep apnea (adult) (pediatric) Status: Acute (8) Pre-diabetes: Code(s): R73.03 - Prediabetes Status: Acute (9) Chronic anticoagulation: Code(s): Z79.01 - senior care (current) use of anticoagulants Status: Acute (10) Paroxysmal atrial fibrillation: Code(s): I48.0 - Paroxysmal atrial fibrillation Status: Acute Plan Paralytic Ileus vs SBO IV Fluids General surgery consulted GoLYTELY Both CT scans showing paralytic ileus versus SBO Abdominal x-ray with water-soluble pending Clear liquid diet Uterine mass/suspicion of metastatic carcinoma Per CT report Biopsy at [facility] 1 week ago pending Oncology consulted Cholelithiasis CT scan showed cholelithiasis with gallstones and some wall thickening General surgery consult to IV fluids WBCs are trending up Patient currently denying any abdominal pain Leukocytosis Trending up even on ABX therapy Patient with the UTI Continue Levaquin and Flagyl patient's previous urine culture from 06/12 was positive for Stenotrophomonas maltophilia only susceptible to Levaquin and Bactrim. Urinary retention with hematuria Goodrich catheter placed 1 week ago due to urinary retention likely secondary to uterine mass Hematuria noted Eliquis on hold Neurology consult in following UTI Urine cultures urine culture from 06/12 was positive for Stenotrophomonas maltophilia only susceptible to Levaquin and Bactrim. Continue IV hydration. Monitor CBC, CMP watch for sepsis. Monitor vital signs. Start antibiotics. Start probiotics to prevent antibiotic induced diarrhea Monitor for obstructive uropathy and pyelonephritis Paroxysmal atrial fib Concurrently sinus rhythm Holding Eliquis due to hematuria Cardiac monitoring Prediabetic Patient's A1c 6.6 Sliding scale insulin Accu-Cheks a.c. HS Will speak with patient whether she wants to start any diabetic medications at discharge TRACY Home CPAP when sleeping Code status: Full code per patient DVT prophylaxis: Lovenox Stress ulcer prophylaxis: Protonix 40 BID PT/OT notes: Pending Disposition: Patient continues admission for paralytic ileus versus SBO, uterine mass with possible wound carcinoma in his hematuria. General surgery, Urology and Oncology consult appreciate any further recommendations. Time Spent With Patient Time with patient: 25 - 35 minutes Subjective Date/time seen: 06/19/23 15:11 Interval history: (Medical Record) This is a 58-year-old female with hypertension, hypothyroidism, paroxysmal atrial fibrillation on anticoagulation, hypothyroidism, obstructive sleep apnea, prediabetes, and bipolar disorder who presented to the emergency department for evaluation of abdominal pain. Last month she was seen ED for evaluation of ongoing pelvic pain at which time an ultrasound showed an enlarged uterus, thickened endometrium, and an intrauterine cystic mass. She had a hysteroscopy with dilation curettage and biopsy per Dr. Vera last week at which time he noted an exophytic mass extruding from the cervical os with high suspicion for malignancy; pathology is still pending but she has been referred to a gynecology/on
[2023-06-19 18:26] LABS: Glucose Point of Care 199 mg/dl (65-105)
[2023-06-19 20:00] VITALS: PULSE 88; PULSE 97; RESP 18; O2SAT 98
[2023-06-19] MEDS: PROCHLORPERAZINE EDISYLATE 10 MG/2 ML VIAL IV PUSH (20:42)
[2023-06-19] MEDS: PANTOPRAZOLE SODIUM IV 40 MG VIAL IV PUSH (20:42)
[2023-06-19 22:00] VITALS: BP 121/88; PULSE 95; RESP 18; TEMP 36.1; O2SAT 96
[2023-06-20] VITALS (21 sets, daily range): BP systolic 54–108; BP diastolic 36–79; PULSE 79–106; RESP 18–45; TEMP 36.2–37.1; O2SAT 85–100
--- NOTE | 2023-06-20 | ECHO_ITS ---
Patient Info Name: Marya Howell Age: 58 years : 1965 Gender: Female Ht: 69 in Wt: 299 lbs BSA: 2.64 m2 HR: 96 bpm BP: 77 / 48 mmHg Heart Rhythm: Sinus Rhythm Technical Quality: Fair Exam Date: 06/20/2023 9:45 AM Exam Location: Echo Lab Patient Status: Inpatient Admit Date: 06/18/2023 Staff Ordering Physician: Chace Ross MD Javascript Ui Developer: Kelsey Bates RDCS Attending Provider: Hal Bustos MD Exam Type: CA echo dop color flow w con Study Info Indications - shock Complete two-dimensional, color flow and Doppler transthoracic echocardiogram is performed with contrast to opacify the left ventricle and to improve the deliniation of the left ventricle endocardial borders. Contrast/Agitated Saline Contrast/Ag. Saline: Definity Amount: 2.00 ml Administered By: Kelsey Bates RDCS Existing IV Access: Yes IV Access Condition: patent with no signs of infiltration Summary 1. Definity contrast administered improved wall motion interpretation. 2. Left ventricular chamber dimension is normal. 3. Left ventricular systolic function is hyperdynamic, estimated at >70%. 4. There is mild concentric increased left ventricular wall thickness. 5. The left ventricular diastolic function is grade I diastolic dysfunction. 6. E/e' 12 is mildly elevated. 7. There is mild aortic valve sclerosis. 8. The mitral valve has moderately calcified annulus. 9. No pulmonary hypertension, estimated pulmonary arterial systolic pressure is 30 mmHg. Left Ventricle E/e' 12 is mildly elevated. Definity contrast administered improved wall motion interpretation. Left ventricular chamber dimension is normal. Left ventricular systolic function is hyperdynamic, estimated at >70%. There is mild concentric increased left ventricular wall thickness. The left ventricular diastolic function is grade I diastolic dysfunction. Right Ventricle Right ventricular systolic function is normal and with normal TAPSE 1.7 cm. Right ventricular chamber dimension is normal. Left Atria Left atrial chamber dimension is normal. Right Atria Right atrial chamber dimension is normal. Aortic Valve The aortic valve is not well visualized. Cannot determine number of aortic valve leaflets. There is mild aortic valve sclerosis. There is no aortic valve stenosis. There is no aortic valve regurgitation. Pulmonic Valve There is no pulmonic regurgitation. Mitral Valve The mitral valve has moderately calcified annulus. There is no mitral valve stenosis. There is no mitral valve regurgitation. Tricuspid Valve There is no tricuspid valve regurgitation. No pulmonary hypertension, estimated pulmonary arterial systolic pressure is 30 mmHg. Pericardium/Pleural There is no pericardial effusion. Inferior Vena Cava Normal inferior vena cava with >50% collapse upon inspiration consistent with normal right atrial pressure, 5 mmHg. Aorta The aortic root size at the sinus of Valsalva is normal. Left Ventricular Outflow Tract Name Value Normal LVOT 2D LVOT Diameter 2.00 cm LVOT Doppler LVOT Peak Gradient 6 mmHg LVOT Mean Gradient 4 mmHg
[2023-06-20] MEDS: levoFLOXacin 750 MG/D5W 150 ML 750 MG/150 ML BAG 100 MG IVPB (01:03)
[2023-06-20] MEDS: SODIUM CHLORIDE 0.9% IV 1,000 ML 125 ML IV CONT ×2 (02:35→10:28)
[2023-06-20 05:55] LABS: Hematocrit 50.1 % (37.0-47.0); Hemoglobin 15.8 g/dL (12.0-15.0); Mean Corpuscular HGB Conc 31.5 g/dl (32-36); Mean Corpuscular Volume 88.8 fl (80-100); Mean Platelet Volume 9.7 fl (7.4-10.4); Platelet Count Result 647 k/mm3 (150-375); Red Blood Count 5.64 M/mm3 (4.2-5.4); Red Cell Distribution Width 13.7 % (11.5-14.5); White Blood Count 22.2 K/mm3 (4.5-10.0)
[2023-06-20] MEDS: metroNIDAZOLE 500 MG/ISO 100ML 500 MG/100 ML BAG 100 MG IVPB (05:56)
[2023-06-20 06:07] LABS: Alanine Aminotransferase 19 U/L (6-35); Albumin Level 4.4 g/dL (3.5-5.1); Alkaline Phosphatase 106 U/L (38-126); Anion Gap 17 mmol/L (8-16); Aspartate Amino Transferase 26 U/L (14-36); Bilirubin,Total 0.6 mg/dL (0.2-1.3); Blood Urea Nitrogen 36 mg/dL (7-17); Carbon Dioxide 18 mmol/L (22-30); Chloride 101 mmol/L (98-107); Estimated CRCL calculation 34 ml/min; Estimated Glomerular Filt Rate 21; Glucose 189 mg/dL (65-110); Magnesium 3.2 mg/dL (1.6-2.3); Potassium 4.2 mmol/L (3.4-5.0); Sodium 136 mmol/L (137-145)
--- NOTE | 2023-06-20 06:44 | P.PNCROSS_ITS ---
Event Note Event Note Event Note: Rapid response was called to patient's room after she was found diaphoretic, co ld,clammy. Objective: Patient acutely ill looking, diaphoretic cold clammy obtunded Subjective: Denies any pain. Blood pressure is 90/40 General: Ill appearing acutely, diaphoretic, cold, clammy, obtunded. HEENT: Atraumatic normocephalic PERRLA EOM intact supple no JVD no lymphadenopathy Respiratory: Diminished throughout Abdomen: Distended, firm, absent bowel sounds. Extremities: Cyanosis Skin: Intact Central nervous system: Lethargy Assessment and plan: 1. Vasovagal episode S/nausea/vomiting/abdominal distension/ileus/ small-bowel obstruction hypotension: KUB shows worsening of bowel loops dilation along with distended stomach contrast still present. Will transfer to IMU NG placement awaiting labs patient already on antibiotics, IV fluids, NPO, I/O's. Follow general surgery recs, follow urology recs. 2. Presumptive endometrial CA with metastasis to lymph nodes and urinary obstruction: NG in place 3. Morbid obesity
[2023-06-20 07:06] LABS: Glucose Point of Care 191 mg/dl (65-105)
[2023-06-20 07:06] LABS: Glucose Point of Care 193 mg/dl (65-105)
[2023-06-20 07:08] LABS: Lactic Acid Reflex 4.1 mmol/L (0.7-2.0)
--- NOTE | 2023-06-20 07:22 | PC.NURSE ---
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 Patient/family oriented to unit policies and routines
--- NOTE | 2023-06-20 08:20 | P.PNIM_ITS ---
Progress Note: A&P Assessment and Plan (1) Urinary tract infection: Code(s): N39.0 - Urinary tract infection, site not specified Status: Acute (2) Adynamic ileus: Code(s): K56.0 - Paralytic ileus Status: Acute (3) Dehydration: Code(s): E86.0 - Dehydration Status: Acute (4) Cholelithiasis: Code(s): K80.20 - Calculus of gallbladder without cholecystitis without obstruction Status: Acute (5) Uterine mass: Code(s): N85.8 - Other specified noninflammatory disorders of uterus Status: Acute (6) Hyponatremia: Code(s): E87.1 - Hypo-osmolality and hyponatremia Status: Acute (7) Obstructive sleep apnea on CPAP: Code(s): G47.33 - Obstructive sleep apnea (adult) (pediatric) Status: Acute (8) Pre-diabetes: Code(s): R73.03 - Prediabetes Status: Acute (9) Chronic anticoagulation: Code(s): Z79.01 - snf (current) use of anticoagulants Status: Acute (10) Paroxysmal atrial fibrillation: Code(s): I48.0 - Paroxysmal atrial fibrillation Status: Acute (11) Septic shock: Code(s): A41.9 - Sepsis, unspecified organism; R65.21 - Severe sepsis with septic shock Status: Acute Plan Septic Shock (06/19) * consult to Critical Care * q.1 hour vital monitoring * IV fluid resuscitation. 30mg/kg for septic shock * reassessment of volume status/tissue perfusion * empiric IV antibiotic therapy * Monitor lactic acid levels q6hr. 4.1 * Repeat CBC, CMP. * Two sets of blood cultures pending * urine cultures. * C-reactive proteins * procalcitonin level. * PTT and PT, INR. * neuro status checks * TTE if indicated. * Monitor albumin, monitoring of mental status. * Steroid suggested if septic shock, continue positive fluid resuscitation and vasopressors * glucose monitoring and control Paralytic Ileus vs SBO * IV Fluids * General surgery consulted * GoLYTELY * Both CT scans showing paralytic ileus versus SBO * Abdominal x-ray with water-soluble worsening SBO/contrast unable to pass proximal/jejunum * Clear liquid diet Uterine mass/suspicion of metastatic carcinoma * Per CT report * Biopsy pending * Oncology consulted * F/U CT showing Thickened endometrial complex, consistent with endometrial carcinoma and Nodular peritoneal thickening, consistent with carcinomatosis. * OBGYN consulted Dr. Vera performed biopsy Acute on chronic renal failure * Stage 3 CKD * Worsening renal function likely due to shock * IV hydration/pressors * Routine CMP monitoring GFR. * Monitor electrolytes especially potassium. * Antibiotic doses depending on creatinine clearance. * Pharmacy does medications. Cholelithiasis * CT scan showed cholelithiasis with gallstones and some wall thickening * General surgery consult to * IV fluids * WBCs are trending up * Patient currently denying any abdominal pain Urinary retention with hematuria * Goodrich catheter placed 1 week ago due to urinary retention likely secondary to uterine mass * Hematuria noted * Eliquis on hold * Urology following UTI * Urine cultures * urine culture from 06/12 was positive for Stenotrophomonas maltophilia only susceptible to Levaquin and Bactrim. * Continue IV hydration. * Monitor CBC, CMP watch for sepsis. * Monitor vital signs. * Monitor for obstructive uropathy and pyelonephritis Paroxysmal atrial fib * Concurrently sinus rhythm * Holdin
--- NOTE | 2023-06-20 08:20 | PM.IMPN ---
Progress Note: A&P Assessment and Plan (1) Urinary tract infection: Code(s): N39.0 - Urinary tract infection, site not specified Status: Acute (2) Adynamic ileus: Code(s): K56.0 - Paralytic ileus Status: Acute (3) Dehydration: Code(s): E86.0 - Dehydration Status: Acute (4) Cholelithiasis: Code(s): K80.20 - Calculus of gallbladder without cholecystitis without obstruction Status: Acute (5) Uterine mass: Code(s): N85.8 - Other specified noninflammatory disorders of uterus Status: Acute (6) Hyponatremia: Code(s): E87.1 - Hypo-osmolality and hyponatremia Status: Acute (7) Obstructive sleep apnea on CPAP: Code(s): G47.33 - Obstructive sleep apnea (adult) (pediatric) Status: Acute (8) Pre-diabetes: Code(s): R73.03 - Prediabetes Status: Acute (9) Chronic anticoagulation: Code(s): Z79.01 - shelter (current) use of anticoagulants Status: Acute (10) Paroxysmal atrial fibrillation: Code(s): I48.0 - Paroxysmal atrial fibrillation Status: Acute (11) Septic shock: Code(s): A41.9 - Sepsis, unspecified organism; R65.21 - Severe sepsis with septic shock Status: Acute Plan Septic Shock (06/19) consult to Critical Care q.1 hour vital monitoring IV fluid resuscitation. 30mg/kg for septic shock reassessment of volume status/tissue perfusion empiric IV antibiotic therapy Monitor lactic acid levels q6hr. 4.1 Repeat CBC, CMP. Two sets of blood cultures pending urine cultures. C-reactive proteins procalcitonin level. PTT and PT, INR. neuro status checks TTE if indicated. Monitor albumin, monitoring of mental status. Steroid suggested if septic shock, continue positive fluid resuscitation and vasopressors glucose monitoring and control Paralytic Ileus vs SBO IV Fluids General surgery consulted GoLYTELY Both CT scans showing paralytic ileus versus SBO Abdominal x-ray with water-soluble worsening SBO/contrast unable to pass proximal/jejunum Clear liquid diet Uterine mass/suspicion of metastatic carcinoma Per CT report Biopsy pending Oncology consulted F/U CT showing Thickened endometrial complex, consistent with endometrial carcinoma and Nodular peritoneal thickening, consistent with carcinomatosis. OBGYN consulted Dr. Vera performed biopsy Acute on chronic renal failure Stage 3 CKD Worsening renal function likely due to shock IV hydration/pressors Routine CMP monitoring GFR. Monitor electrolytes especially potassium. Antibiotic doses depending on creatinine clearance. Pharmacy does medications. Cholelithiasis CT scan showed cholelithiasis with gallstones and some wall thickening General surgery consult to IV fluids WBCs are trending up Patient currently denying any abdominal pain Urinary retention with hematuria Goodrich catheter placed 1 week ago due to urinary retention likely secondary to uterine mass Hematuria noted Eliquis on hold Urology following UTI Urine cultures urine culture from 06/12 was positive for Stenotrophomonas maltophilia only susceptible to Levaquin and Bactrim. Continue IV hydration. Monitor CBC, CMP watch for sepsis. Monitor vital signs. Monitor for obstructive uropathy and pyelonephritis Paroxysmal atrial fib Concurrently sinus rhythm Holding Eliquis due to hematuria Cardiac monitoring Prediabetic Patient's A1c 6.6 Sliding scale insulin Accu-Cheks a.c. HS Will speak with patient whether she wants to start any diabetic medications at discharge TRACY Home CPAP when sleeping Code status: Full code per patient DVT prophylaxis: SCD Stress ulcer prophylaxis: Protonix 40 BID PT/OT notes: NA Disposition: Patient was transferred to the ICU for septic shock may need transferred to tertiary hospital if stable that has OBGYN oncology available.
[2023-06-20] MEDS: PANTOPRAZOLE SODIUM IV 40 MG VIAL IV PUSH (08:27)
--- NOTE | 2023-06-20 09:04 | WPDUROPN2 ---
Progress Note: A&P Assessment and Plan (1) Urinary retention: Code(s): R33.9 - Retention of urine, unspecified Status: Acute Assessment and Plan: She has had an indwelling catheter since 06/07/23. Etiology likely due to severe constipation/ileus and likely worsened due to suspected endometrial cancer with metastases and pelvic lymphadenopathy. Consider void trial prior to discharge if resolution of ileus. Continue tenorio catheter at this time. (2) Urinary tract infection: Code(s): N39.0 - Urinary tract infection, site not specified Status: Acute Assessment and Plan: UA on presentation was abnormal, however urine culture is negative. She had a positive urine culture on 06/13/2023 growth of stenotrophomonas; she remains on Levaquin for this (3) Hematuria: Qualifiers: Hematuria type: gross Qualified Code(s): R31.0 - Gross hematuria Code(s): R31.9 - Hematuria, unspecified Status: Inactive Assessment and Plan: Resolved. Likely secondary to UTI and tenorio catheter trauma. Urine is clear at this time. (4) Adynamic ileus: Code(s): K56.0 - Paralytic ileus Status: Acute Assessment and Plan: Being managed by general surgery. As above, consider voiding trial if this issue resolves (5) Uterine mass: Code(s): N85.8 - Other specified noninflammatory disorders of uterus Status: Acute Assessment and Plan: Highly suspicious for malignancy with CT findings concerning for peritoneal carcinomatosis and lymphadenopathy consistent with metastatic disease. She has follow up with [facility]ology scheduled. Subjective Subjective Date/Time Seen: 06/20/23 09:04 Interval history: Feeling poorly today. Overnight had worsening of her clinical condition and transferred to IMU. She remains hypotensive, tachypneic, diaphoretic and transition to ICU being considered by primary team. Tenorio catheter with minimal output of clear yellow urine. WBC remains elevated, creatinine doubled overnight, 2.4 today. Review of Systems Review of Systems: All systems reviewed & are unremarkable except as noted in HPI and below Exam Narrative: General: Awake, alert, acutely ill-appearing HEENT: Normocephalic, atraumatic, sclerae anicteric Respiratory: Tachypneic Abdomen: Nondistended, soft : Tenorio catheter draining clear yellow urine Skin: Normal coloration, slightly diaphoretic Neurologic: No focal neuro deficits noted Psychiatric: Appropriate mood and affect Objective Data Vital Signs Vital Signs: Vital Signs - 24 hr 06/19/23 12:34 06/19/23 20:00 06/19/23 20:00 Temperature 96.5 F L Pulse Rate 97 88 97 Respiratory Rate 18 Blood Pressure 138/93 H Pulse Oximetry 98 98 Oxygen Delivery Room Air Oxygen Flow Rate 06/19/23 22:00 06/20/23 00:00 06/19/23 22:30 Temperature 97.0 F L Pulse Rate 95 93 Respiratory Rate 18 Blood Pressure 121/88 Pulse Oximetry 96 Oxygen Delivery Autopap Oxygen Flow Rate 06/20/23 04:00 06/20/23 07:21 06/20/23 06:30 Temperature 98.2 F 97.1 F L Pulse Rate 103 H 106 H 96 Respiratory Rate 18 26 H Blood Pressure 103/48 L 90/40 L Pulse Oximetry 100 100 Oxygen Delivery Oxygen Flow Rate 06/20/23 07:46 Temperature Pulse Rate 96 Respiratory Rate 32 H Blood Pressure 77/48 L Pulse Oximetry 85 L Oxygen Delivery Nasal Cannula Oxygen Flow Rate 3 Intake/Output Intake/Output: Intake & Output 06/17/23 06/18/23 06/19/23 06/20/23 22:59 23:59 23:59 23:59 Intake Total 3682 800 Output Total 1325 100 Balance 2357 700 Meds/Results Medications: Active Medications Generic Name Dose Route Start Last Admin Trade Name Freq PRN Reason Stop Dose Admin Dextrose 12.5 gm 06/18/23 23:16 Dextrose 50% 25 Gm/50 Ml Syringe IV PUSH PRN PRN Hypoglycemia Protocol Glucagon 1 mg 06/18/23 23:16 Glucagon For Inj 1 Mg Vial
--- NOTE | 2023-06-20 09:20 | PC.NURSE ---
Pt received from IMU. Report received bedside from IMU RN.
[2023-06-20 09:29] LABS: Alveolar/Arterial O2 Gradient 87.5 mmHg; Base Excess ABG -5.9 mEq/l (+/-2.0); Fractional Inspired Oxygen 28 %; HCO3 ABG 18.4 mEq/l (22.0-26.0); Oxygen Content ABG 19.4 %vol (16.0-22.0); Oxygen Saturation ABG 94.4 % (95.0-100.0); Oxyhemoglobin 93.6 % THb (90.0-100.0); PCO2 ABG 33.1 mmHg (35.0-45.0); PO2 ABG 73.1 mmHg (80.0-100.0); PO2 FiO2 Ratio Arterial Blood 2.61 %; Total Hemoglobin 14.7 g/dL (12.0-18.0); pH ABG 7.364 (7.350-7.450)
[2023-06-20 09:30] LABS: Device NASAL CANNULA; Modified Allen's Test Pass; Site Drawn RIGHT RADIAL
[2023-06-20] MEDS: SODIUM BICARBONATE 8.4% 50 MEQ/50 ML SYRINGE IV PUSH (09:38)
[2023-06-20] MEDS: SODIUM CHLORIDE 0.9% IV 1,000 ML 999 ML IV CONT (09:39)
[2023-06-20] MEDS: HYDROmorphone HCL INJ (*CRX) 1 MG/ML SYR 0.5 MG IV PUSH (09:41)
[2023-06-20 09:48] LABS: Reflex Lactic Acid Yes or No Add Lactic
[2023-06-20] MEDS: MEROPENEM 1 GM/NS 100 ML 1 GM/100 ML BAG IVPB (10:28)
[2023-06-20 10:43] LABS: Lactic Acid 2.2 mmol/L (0.7-2.0)
[2023-06-20 10:45] LABS: Creatine Kinase 162 U/L (30-135)
--- NOTE | 2023-06-20 10:52 | WPDCNINT ---
Assessment and Plan Assessment and plan (1) Sepsis: Code(s): A41.9 - Sepsis, unspecified organism Status: Acute Assessment and Plan: Secondary to bowel obstruction and UTI Patient had indwelling Goodrich catheter Patient deteriorated overnight was hypotensive this morning. Her lactic acid was 4.4 I gave patient 1 L of fluid bolus and health her antihypertensive medications. Her blood pressure has since then been stable patient was transferred to ICU for closer monitoring and as I anticipated the patient may need vasopressors. Repeat lactic acid level is 2.2 showing improvement I have added meropenem to Levaquin and blood cultures have been sent (2) Urinary retention: Code(s): R33.9 - Retention of urine, unspecified Status: Acute Assessment and Plan: Patient has had urinary retention for last few weeks and has indwelling Goodrich placed by ER Patient was seen by Urology and recommend continuing catheter at this time (3) Urinary tract infection: Code(s): N39.0 - Urinary tract infection, site not specified Status: Acute Assessment and Plan: See above (4) Hyperglycemia: Code(s): R73.9 - Hyperglycemia, unspecified Status: Acute Assessment and Plan: Patient has diagnosis of prediabetes Continue sliding scale insulin this time (5) Chronic anticoagulation: Code(s): Z79.01 - skilled nursing (current) use of anticoagulants Status: Acute Assessment and Plan: Eliquis has been held due to anticipated procedure and surgery (6) Hypothyroidism: Code(s): E03.9 - Hypothyroidism, unspecified Status: Acute Assessment and Plan: Continue liothyronine Check TSH (7) Endometrial cancer: Code(s): C54.1 - Malignant neoplasm of endometrium Status: Acute Assessment and Plan: Patient was diagnosed with pelvic mass and underwent biopsy Biopsy confirms endometrial cancer (8) Abdominal carcinomatosis: Code(s): C76.2 - Malignant neoplasm of abdomen Status: Acute Assessment and Plan: See above (9) Bowel obstruction: Code(s): K56.609 - Unspecified intestinal obstruction, unspecified as to partial versus complete obstruction Status: Acute Assessment and Plan: Patient presented with abdominal pain with history of constipation for weeks. Initial cT scan showed Dilated small bowel with air-fluid level; consider adynamic ileus versus distal small bowel obstruction Cholelithiasis, pericholecystic fluid, mild fluid accumulation in right paracolic gutter. Cannot exclude acute cholecystitis Gastric lap band Small sliding hiatal hernia Bibasilar infiltrate and/atelectasis Bilateral renal cysts General surgery was consulted Repeat CT scan on 06/18 IMPRESSION: 1. Dilated small bowel, consistent with adynamic ileus versus small bowel obstruction. 2. Thickened endometrial complex, consistent with endometrial carcinoma. 3. Small volume of ascites. Nodular peritoneal thickening, consistent with carcinomatosis. 4. Left internal iliac and left para-aortic lymphadenopathy, consistent with metastatic disease. Small-bowel follow-through on 06/18 showed IMPRESSION: Contrast did not progress beyond the proximal/mid jejunum in this examination. Increased small bowel dilation since the prior CT. Findings may represent worsening small bowel obstruction or ileus. Recommend follow-up KUB in the morning Patient was being seen by general surgery. Today after deterioration and rapid response I ordered stat CT after discussion with Dr. Hernandez. No additional IV contrast was given due to acute renal failure. Plan was to rule out any free air and perforation CT scan showed IMPRESSION: 1. Dilated small bowel with transition point in the terminal ileum without passage of yesterday's oral contrast beyond the transition point, consistent with small bowel obstruction. 2. Small volume of ascites. Nodular peritoneal thickening, consiste
[2023-06-20 11:04] LABS: Lithium 0.8 mmol/L (0.6-1.2)
[2023-06-20] MEDS: PERFLUTREN LIPID MICROSPHERES 1.5 ML VIAL DILUTED TO 10 ML TOTAL VOLUME IV PUSH (11:21)
[2023-06-20] MEDS: SODIUM BICARBONATE 8.4% 150 MEQ in WATER, STERILE FOR INJECTION 950 ML 100 MEQ IV CONT (11:29)
--- NOTE | 2023-06-20 11:53 | IVDEFINITY ---
Prior to administration of IV Definity the patient was educated on the risks and benefits of the imaging enhancing agent including potential adverse side effects. The patient verbalized understanding. Allergies were verified. No exclusion criteria were identified and at least one of the following inclusion criteria were met: 1) physician request, 2) patient technically difficult to image (per the [place] [employer] guidelines of two or more segments not discernable within the apical view), or 3) questionable left ventricular function. ?
--- NOTE | 2023-06-20 12:31 | WPDCN ---
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 (2) Bowel obstruction: Code(s): K56.609 - Unspecified intestinal obstruction, unspecified as to partial versus complete obstruction Status: Acute Assessment and Plan: Management per General surgery (3) Sepsis: Code(s): A41.9 - Sepsis, unspecified organism Status: Acute Assessment and Plan: patient currently being treated for sepsis Management per lay midwife team Lactic acid improving Patient currently on Levaquin and meropenem (4) Urinary retention: Code(s): R33.9 - Retention of urine, unspecified Status: Acute Assessment and Plan: patient continues to have urinary retention Patient has indwelling catheter in place Retention possibly due to uterine / cervical mass obstructing the ureters No hydronephrosis or ureteral dilation noted on imaging Management per urology HPI Data of Consult Date/Time: 06/20/23 12:31 Requesting Physician: Hal Bustos MD Primary Care Provider: Marya Lau DO Consult Narrative Reason for consult: Uterine cancer/mass Narrative: Marya Howell is a 58 year old female currently admitted in the ICU for management of sepsis. Patient's initial complaint was abdominal pain secondary to urinary retention and constipation/ileus. Patient is status post hysteroscopy D&C for uterine mass. Patient has not had any continued vaginal bleeding. Pain is controlled with diluadid. Review of Systems Review of Systems: All systems reviewed & are unremarkable except as noted in HPI and below PMFSH Past Medical History Medical History (Updated 06/20/23 @ 11:13 by Chace Ross MD) Abdominal carcinomatosis Arthritis Bipolar disorder Chicken pox Chronic anticoagulation Chronic kidney disease, stage 3 Depression Endometrial cancer Gallstones Gastroesophageal reflux disease History of one miscarriage History of torn meniscus of left knee Repair March 2021. Hypertension Hypothyroidism Obstructive sleep apnea on CPAP Paroxysmal atrial fibrillation Pneumonia Pre-diabetes Surgical History Surgical History History of bilateral tubal ligation History of section History of laparoscopic adjustable gastric banding History of left knee surgery Family History Family History Mother Patient's mother is in good health Sibling Patient's sister is in good health Patient's brother is in good health Father CHF (congestive heart failure) Alcoholism Hypertension Depression Heart disease Grandparent Cancer Diabetes mellitus Social History Social History Social History: Surrogate medical decision maker: Edouard Howell, spouse. Code status: Full code. Smoking status: Never smoker Alcohol intake: never Substance use: never Substance use type: does not use Do You Feel Safe in your Home?: Yes Lack of Transportation: No Lack of Food: Never True Current Housing: I Have Housing Concerned About Future Housing: No Di
--- NOTE | 2023-06-20 12:32 | PM.PNGS ---
Progress Note: A&P Assessment and Plan (1) Bowel obstruction: Code(s): K56.609 - Unspecified intestinal obstruction, unspecified as to partial versus complete obstruction Status: Acute Assessment and Plan: SBFT showed contrast not advancing past mid jejunum by 3 hours, suggesting worsening small bowel obstruction. Staff was unsuccessful in placing an NG tube. She will hopefully have this done in Radiology with fluoroscopy today for NG tube decompression. Continue bowel rest and IV fluids. CT scan of the abdomen and pelvis repeated today and still showed a small bowel obstruction with transition point in the terminal ileum without any passage of the oral contrast from SBFT yesterday. Again seen is the nodular peritoneal thickening c/w carcinomatosis and lymphadenopathy c/w metastatic disease. Given the high-grade small bowel obstruction in the setting of metastatic endometrial cancer and carcinomatosis, we would recommend transfer to a tertiary care facility where the patient could be evaluated by Gynecologic Oncology. Therefore she could have any additional surgery needed from [facility] if she required exploratory surgery for the small bowel obstruction, which could also be caused by her metastatic disease. Discussed these recommendations with the Load Builder who will work on transferring the patient. (2) Abdominal carcinomatosis: Code(s): C76.2 - Malignant neoplasm of abdomen Status: Acute Assessment and Plan: As noted on CT scan yesterday and today. See plan above. (3) Endometrial cancer: Code(s): C54.1 - Malignant neoplasm of endometrium Status: Acute Assessment and Plan: Pathology reviewed and shows endometrioid carcinoma (4) Sepsis: Code(s): A41.9 - Sepsis, unspecified organism Status: Acute Assessment and Plan: Deterioration overnight, now with hypotension, lactic acidosis, and leukocytosis. Repeat CT abdomen/pelvis today showed no evidence of bowel perforation. Still showing small bowel obstruction as mentioned above. Continue broad-spectrum IV antibiotics and critical care management. Recommend transfer as mentioned above. (5) Gallstones: Code(s): K80.20 - Calculus of gallbladder without cholecystitis without obstruction Status: Acute Assessment and Plan: RUQ US showed cholelithiasis with gallbladder wall thickening suggesting this is likely secondary to interstitial edema. Repeat CT scans show no evidence of acute cholecystitis. Her abdominal pain and tenderness is more likely related to the small bowel obstruction. No indication for urgent surgical intervention for her gallbladder. (6) UTI (urinary tract infection): Qualifiers: Encounter type: initial encounter Indwelling urinary catheter type: indwelling urethral catheter Urinary tract infection type: catheter-associated UTI Qualified Code(s): T83.511A - Infection and inflammatory reaction due to indwelling urethral catheter, initial encounter; N39.0 - Urinary tract infection, site not specified Code(s): N39.0 - Urinary tract infection, site not specified Status: Acute Assessment and Plan: Chronic urinary retention with a Goodrich catheter in place. Continue abx per primary service. Plan I have discussed the patient's case and plan of care with Dr. Hernandez. Subjective Subjective Date/Time Seen: 06/20/23 09:32 Interval history: Patient seen in ICU today. She had a rapid response called early this morning when she was found to be diaphoretic and clammy. She was also apparently lethargic. She was transferred IMU. Her small-bowel follow-through yesterday was completed in the evening and showed a small-bowel obstruction with no progression of contrast through the proximal/mid jejunum. During the rapid response this morning, she had a repeat KUB that showed worsening dilation of small bowel loops along with distended stomach and contrast still present. They attem
--- NOTE | 2023-06-20 12:55 | PC.NURSE ---
Radiologist unable to successfully place NG tube. Dr. Ross notified. No new orders at this time
[2023-06-20] MEDS: ALBUMIN HUMAN 5% 250 ML IV CONT (13:27)
--- NOTE | 2023-06-20 13:34 | PC.NURSE ---
1305: Dr. Ross notified of pt's BP running low. 54/36, 66/41, 78/56. RN asked if MD would like RN to start Levophed through her peripheral IV. New order for 5% Albumin 250ml x1. 1315: RN notified Dr. Ross that pt's BP remains low. 64/54, 79/55. New order for Phenylephrine infusion per ICU protocol.
[2023-06-20 13:44] LABS: Glucose Point of Care 176 mg/dl (65-105)
[2023-06-20 14:14] LABS: Free T4 Free Thyroxine Reflex 1.37 ng/dL (0.78-2.19)
[2023-06-20 14:56] LABS: Total Triiodothyronine (T3) 0.71 NG/ML (0.97-1.69)
--- NOTE | 2023-06-20 15:21 | PC.NURSE ---
Pt discharged to [facility], [place], [place] to room 397. Transfer provided by [facility]. Pt discharged with Phenylephrine & Bicarb drips infusing. Goodrich catheter in place, and 2L O2 on. at bedside and aware of transfer.
--- NOTE | 2023-06-20 15:58 | PM.TDS ---
Transfer Discharge Sum: Prov Provider Date of admission: 06/18/23 16:12 Primary care physician: Marya Lau DO Admitting clinician: Hal Bustos MD Attending physician on admission: Lorna Rogers Consults: 06/18/23 15:20 Consult to Physician Routine Comment: left message exchange 06/18/23 [id number] Consulting Provider: Cristopher Hernandez call center analyst/MD group to consult: David Reason for consultation: abdomen pain,SBO verses adynamic ileus Has provider been notified: Yes 06/19/23 Consult to Physician Routine Comment: Consulted office @ 16:14 on 06/19/23 Consulting Provider: Sai Hurst call center analyst/MD group to consult: Oncology Reason for consultation: Metastatic carcinoma Has provider been notified: Yes 06/19/23 08:00 Consult to Physician Routine Comment: Consulted DrDeanne Office @ 08:10 AM 06/19/23 Consulting Provider: Gabriel Bartlett call center analyst/MD group to consult: Urology Reason for consultation: Chronic urinary retention and chronic tenorio, UTI Has provider been notified: Yes 06/20/23 Consult to Physician Routine Comment: Consulting Provider: Chace Ross Reason for consultation: Sepsis Has provider been notified: Yes Consult to Physician Routine Comment: called office with consult information Consulting Provider: Lenny Vera call center analyst/MD group to consult: Dr. Vera GYNBrittany Reason for consultation: Uterine mass/carcinoma Has provider been notified: Yes Attending physician on discharge: Lorna Rogers Discharging clinician: Alejandra Levine Anticipated date of transfer: 06/20/23 Receiving physician/facility: [facility] DS: Admitting Diagnosis Discharge Date 06/20/23 Admitting Diagnosis Uterine mas/SBO DS: Discharge Diagnosis Discharge Diagnosis (1) Urinary tract infection: Code(s): N39.0 - Urinary tract infection, site not specified Status: Acute (2) Adynamic ileus: Code(s): K56.0 - Paralytic ileus Status: Acute (3) Dehydration: Code(s): E86.0 - Dehydration Status: Acute (4) Cholelithiasis: Code(s): K80.20 - Calculus of gallbladder without cholecystitis without obstruction Status: Acute (5) Uterine mass: Code(s): N85.8 - Other specified noninflammatory disorders of uterus Status: Acute (6) Hyponatremia: Code(s): E87.1 - Hypo-osmolality and hyponatremia Status: Acute (7) Obstructive sleep apnea on CPAP: Code(s): G47.33 - Obstructive sleep apnea (adult) (pediatric) Status: Acute (8) Pre-diabetes: Code(s): R73.03 - Prediabetes Status: Acute (9) Chronic anticoagulation: Code(s): Z79.01 - detention (current) use of anticoagulants Status: Acute (10) Paroxysmal atrial fibrillation: Code(s): I48.0 - Paroxysmal atrial fibrillation Status: Acute (11) Septic shock: Code(s): A41.9 - Sepsis, unspecified organism; R65.21 - Severe sepsis with septic shock Status: Acute Plan Septic Shock (06/19) consult to Critical Care q.1 hour vital monitoring IV fluid resuscitation. 30mg/kg for septic shock reassessment of volume status/tissue perfusion empiric IV antibiotic therapy Monitor lactic acid levels q6hr. 4.1 Repeat CBC, CMP. Two sets of blood cultures pending urine cultures. C-reactive proteins procalcitonin level. PTT and PT, INR. neuro status checks TTE if indicated. Monitor albumin, monitoring of mental status. Steroid suggested if septic shock, continue positive fluid resuscitation and vasopressors glucose monitoring and control Paralytic Ileus vs SBO IV Fluids General surgery consulted GoLYT[facility] Both CT scans showing paralytic ileus versus SBO Abdominal x-ray with water-soluble worsening SBO/contrast unable to pass proximal/jejunum Clear liquid diet Uterine mass/suspicion of metastatic carcinoma Per CT report Biopsy pending Oncology consulted F/U CT sh
--- NOTE | 2023-06-21 12:25 | WPDPN ---
Progress Note: A&P Assessment and Plan (1) Bowel obstruction: Code(s): K56.609 - Unspecified intestinal obstruction, unspecified as to partial versus complete obstruction Status: Acute Assessment and Plan: Patient appears to have a high-grade small-bowel obstruction without perforation on CT scan and small-bowel series performed within the last 24hours. Nasogastric tube was difficult to place at the bedside and so now it is being placed in Radiology. Suggestion is it could be due to carcinomatosis as prior CT scan has shown what appears to be carcinomatosis from her uterine cancer. We will decompress the small bowel with nasogastric tube and discussed with raw juice weigher transfer to tertiary care facility. (2) Abdominal carcinomatosis: Code(s): C76.2 - Malignant neoplasm of abdomen Status: Acute Assessment and Plan: Suggested on CT scan. Certainly with her history of not having a bowel movement for a month and small-bowel obstruction now it is concerning that small-bowel obstruction may be due to the carcinomatosis. The Pathology has come back showing she definitely does have endometrial cancer after her recent biopsy of the uterine mass. (3) Uterine cancer: Code(s): C55 - Malignant neoplasm of uterus, part unspecified Status: Acute Assessment and Plan: Given her issues with high-grade small-bowel obstruction and suggest carcinomatosis I have recommended that she be transferred to [facility] where there is a ob/gyn nurse oncologist available to help manage her situation. She is agreeable to transfer. ICU physician will initiate transfer. I think she is stable enough for transfer. Subjective Date/time seen: 06/20/23 Interval history: Patient was seen this morning after having a rapid response called. Is having respiratory distress with respiratory rate in the 30s and low blood pressure in the 60s to 80s for systolic blood pressure. She was emergently transferred to the intensive care unit. In the ICU she seems to be more comfortable. She is on nasal cannula oxygen answering questions appropriately. Subjectively, only mild abdominal pain which is still improved in comparison to when she was admitted. She did have multiple episodes of emesis yesterday and I question whether she may have aspirated. Does not look like she needs to be intubated right now. BloodPressure is stabilized with systolic blood pressures in the 120s and 130s without any pressors. Repeat CT scan abdomen pelvis without contrast showed no evidence of free air no perforation of bowel. Did show small bowel obstruction at the level of the terminal ileum. Small bowel series water contrast yesterday showed high-grade small-bowel obstruction. Exam GI: Other: The abdomen is obese and moderately distended. He has moderate tenderness to palpation the right upper quadrant without guarding or diffuse peritoneal signs. There certainly is a rather vague fullness to the mid and right upper quadrants of the abdomen. Objective Data Vital Signs Vital Signs: Vital Signs - 24 hr 06/20/23 12:58 06/20/23 12:59 06/20/23 13:01 Pulse Rate 80 81 Respiratory Rate 24 H 41 H 45 H Blood Pressure 54/36 L 66/41 L 78/56 L Pulse Oximetry 06/20/23 13:16 06/20/23 13:31 06/20/23 13:43 Pulse Rate 81 79 79 Respiratory Rate 44 H 43 H Blood Pressure 64/54 L 79/55 L 69/46 L Pulse Oximetry 93 98 06/20/23 14:00 06/20/23 14:00 06/20/23 14:01 Pulse Rate 81 81 81 Respiratory Rate 41 H Blood Pressure 84/69 L 84/69 L Pulse Oximetry 94 06/20/23 14:16 06/20/23 14:45 06/20/23 15:00 Pulse Rate 83 83 83 Respiratory Rate Blood Pressure 105/79 99/56 L 93/43 L Pulse Oximetry Intake/Output Intake/Output: Intake & Output 06/18/23 06/19/23 06/20/23 06/21/23 23:59 23:59 23:59 23:59 Intake Total 3682 1900 Output Total 1325 100 Balance 2357 1800 Meds/Results Radiolo
== END 2023-06-20 15:19 | disposition short-term general hospital (02) | DRG 374 ==
LOC: ANHED 15:28 → ANH3MED 15:51 → ANHICU 06-21 13:43 → ANHIMU 06-21 13:43
PROVIDERS: Internal Medicine; Physician Assistant; Admitting Provider Internal Medicine; Emergency Provider Nurse Practitioner Family; PCP Family Medicine; Visit Provider Nurse Practitioner Family
DX: C78.6 Secondary malignant neoplasm of retroperitoneum and peritoneum (principal); A41.9 Sepsis, unspecified organism; R65.21 Severe sepsis with septic shock; K56.0 Paralytic ileus; K56.609 Unspecified intestinal obstruction, unspecified as to partial versus complete obstruction; T83.511A Infection and inflammatory reaction due to indwelling urethral catheter, initial encounter; N17.9 Acute kidney failure, unspecified; E87.1 Hypo-osmolality and hyponatremia; C54.1 Malignant neoplasm of endometrium; I48.0 Paroxysmal atrial fibrillation; I12.9 Hypertensive chronic kidney disease with stage 1 through stage 4 chronic kidney disease, or unspecified chronic kidney disease; N18.30 Chronic kidney disease, stage 3 unspecified; E86.0 Dehydration; E86.1 Hypovolemia; K80.20 Calculus of gallbladder without cholecystitis without obstruction; K21.9 Gastro-esophageal reflux disease without esophagitis; K59.00 Constipation, unspecified; E03.9 Hypothyroidism, unspecified; R73.03 Prediabetes; R55 Syncope and collapse; R33.9 Retention of urine, unspecified; M19.90 Unspecified osteoarthritis, unspecified site; G47.33 Obstructive sleep apnea (adult) (pediatric); F31.9 Bipolar disorder, unspecified; Z79.01 Long term (current) use of anticoagulants; Z98.84 Bariatric surgery status
CPT/HCPCS: 36415; 36600; 71045; 74018; 74176; 74177; 74250; 76705; 80048; 80053; 80178; 81001; 82550; 82805; 82948; 83036; 83605; 83690; 83735; 84439; 84443; 84480; 85025; 85027; 87040; 87086; 93005; 96361; 96365; 96375; 99285; A9270; C8929; C9113; G0378; J0780; J1170; J1836; J1956; J2185; J2270; J2371; J2405; J2543; J7030; J7060; P9041; Q9957; Q9967